=== PATIENT | male | born 1940 | race Caucasian/White ===

== ENCOUNTER 2016-04-14 20:23 | Inpatient (IN) | payer MEDICARE, BC ==
--- NOTE | ~2016-04-14 | CN ---
Consultation Report [facility] [address] [place]. [address] NAME: MINGO PEREZ : 42 STATUS : ADM IN PAT#: [id number] AGE: 75 ADM/REG DATE : 04/14/16 MR#: [id number] REPORT SERV DATE: 05/05/16 DICTATED BY: LUIZA TOLEDO DATE: 05/05/16 REPORT STATUS : Draft TRANSCRIBED BY: MODSerge DATE: 05/05/16 NEUROLOGY CONSULTATION DATE OF CONSULTATION: 05/05/2016 REASON FOR CONSULTATION: Ataxia and dizziness. PCP: None. HOSPITALIST: Judah Logan MD HISTORY OF PRESENT ILLNESS: The patient is a 75-year-old male, who was admitted on the of this month with severe nausea, vomiting, vertigo, imbalance, right ear pain, and headache. The patient himself was a poor historian. He states he does not remember much of what happened prior to admission. He has been here in the hospital so long that he has forgotten. However, his girlfriend was in the room with the patient and she was able to recall some of the events prior to admission. She stated that the patient's symptoms came on rather suddenly. He did complain of right ear pain and had a headache the 1st day or two of his symptoms. She states that he complained of his legs feeling heavy and when he stood up, he tended to fall towards the left side. In fact, he always fell towards the left. Any time he would change positions, he would get nauseated and would vomit. The patient was admitted to the hospital on the of this month and since that time, he has had persistent nausea and vomiting. Still to this day, any time he moves around the bed or he stands up, he will get nauseated and vomit. He has been unable to keep much food down or even his medications because of the nausea and vomiting. When the patient was questioned specifically about his hearing, he states that he has lost his hearing particularly on the right because he has "hole in his ear." He denies any ringing or buzzing in his ears. He does state that he has a "popping sound" when he opens his mouth or puts pressure in his ears. When his symptoms first started, he denied any visual changes, weakness, or numbness on one side of his body. He denied any changes in speech or disorientation. PAST MEDICAL HISTORY: Diastolic heart failure, stroke x3, GI bleed, small bowel AVM x3, anxiety, hypertension, aortic stenosis, chronic kidney disease stage 3, coronary artery disease, peripheral artery disease, renal cell carcinoma, hiatal hernia, Jamil's esophagitis, diverticulosis, subclavian stenosis, adrenal adenoma, hyperlipidemia, B12 deficiency, cigarette abuse, and alcohol abuse. PAST SURGICAL HISTORY: Cardiac stents, AVR, peripheral stents, partial nephrectomy, carotid stent, bowel resection x2, appendectomy, cholecystectomy, thoracic aneurysm repair, and left subclavian stent placement. CURRENT MEDICATION LIST: Includes Augmentin 875 mg b.i.d., aspirin 81 mg daily, Plavix 75 mg Consultation Report [address] [place]. [address] NAME: MINGO PEREZ : 42 STATUS : ADM IN [facility]#: [id number] AGE: 75 ADM/REG DATE : 04/14/16 MR#: [id number] REPORT SERV DATE: 05/05/16 DICTATED BY: LUIZA TOLEDO DATE: 05/05/16 REPORT STATUS : Draft TRANSCRIBED BY: MARAL DATE: 05/05/16 daily, Pepcid 20 mg IV daily, Flonase nasal spray, heparin 5000 units subcu every 8 hours, Claritin 10 mg daily, Singulair 10 mg at bedtime, Habitrol nicotine patch 21 mg daily, Protonix 40 mg b.i.d., MiraLAX one packet daily, and Carafate 1 g before meals and at bedtime. ALLERGIES: SULFA. SOCIAL HISTORY: The patient is a who lives with his girlfriend. He has two children. 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 He is a smoker who quit prior to admission. He drinks beer and does not use illicit drugs. FAMILY HISTORY: Not obtained from the patient. REVIEW OF SYSTEMS: For pertinent positives, please refer to HPI. PHYSICAL EXAMINATION: VITAL SIGNS: The patient is a 75-year-old male, who stands 5 foot 11 inches and weighs 147 pounds. He is afebrile. Heart rate 75, respiratory rate 20, O2 saturations on room air 95%, and blood pressure 215/84. NEURO: The patient is hard of hearing but he is oriented x4, pleasant, communicates appropriately. Speech is clear. Language fluent. Pupils are 3 mm on the left, 4 mm on the right (chronic). EOMs intact, slight nystagmus with vertical gaze. Does have asterixis. No pronator drift, dysmetria, tremor. Slight ataxia with [id number] bilaterally. Upper extremity strength is 4+ bilaterally. Upper DTRs 1+ bilaterally. No reported sensory deficits. Lower extremity strength is 4/5 bilaterally. Patellar reflexes 2+ bilaterally. Unable to assess plantar. The patient is very sensitive in his feet. No reported sensory deficits. The patient is unable to get up at this point. He is very sick at his stomach when he changes positions. NECK: Carotid bruits. No JVD or thyromegaly. CHEST: Lung sounds reveal scattered rhonchi. CARDIAC: Regular rate and rhythm with a grade 2/6 systolic murmur. LAB WORK: CBC shows an H and H of 6.6 and 20.9. BMP: BUN 33, creatinine 2.33. MRI of the brain back in 04/15/2016, no acute changes. ASSESSMENT/PLAN: Persistent vertigo with associated nausea and vomiting, etiology unknown. Differentials could include a central vertigo (stroke) versus vestibular neuronitis versus Meniere disease (however the patient does not report tinnitus). At this point, the patient will undergo an MRI of the brain without gadolinium. I will place him on thiamine 100 mg IV daily and lastly if the MRI comes back negative, we will consider placing the patient on steroids to help alleviate his symptoms. Thank you again for including us in consultation. We will continue to follow with you. Consultation Report [address] [place]. [address] NAME: MINGO PEREZ : 41 STATUS : ADM IN PAT#: [id number] AGE: 75 ADM/REG DATE : 04/14/16 MR#: [id number] REPORT SERV DATE: 05/05/16 DICTATED BY: LUIZA TOLEDO DATE: 05/05/16 REPORT STATUS : Draft TRANSCRIBED BY: MARAL DATE: 05/05/16 IVY/MARAL Luiza Toledo [facility]- / [id number] CC: Judah Logan MD
--- NOTE | ~2016-04-14 | OP ---
Record Of Operation [facility] [address] [place]. [address] NAME: MINGO PEREZ : 42 STATUS : ADM IN PAT#: [id number] AGE: 75 ADM/REG DATE : 04/14/16 MR#: [id number] REPORT SERV DATE: 04/19/16 DICTATED BY: JONAH NIEVES DATE: 04/19/16 REPORT STATUS : Draft TRANSCRIBED BY: MODL DATE: 04/19/16 DATE OF PROCEDURE: 04/17/2016 PREPROCEDURE DIAGNOSIS: Mesenteric vascular ischemia. PROCEDURE PERFORMED: 1. Selective catheterization of the superior mesenteric artery with angioplasty stent reconstruction 6 x 22 iCAST. 2. Selective catheterization of the celiac artery with direct arteriography with a 4 x 12 mm bare-metal angioplasty and stent. SURGEON: Jonah Nieves M.D. ANESTHESIA: Local MAC. COMPLICATIONS: None. INDICATION FOR PROCEDURE: Secondary to this very pleasant 75-year-old gentleman presenting with evidence of mesenteric vascular disease, status post remotely stent reconstruction of the SMA presenting with new nausea and vomiting and severe abdominal pain. Recommendations were made for repeat angiography to help further define his mesenteric vascular system and repair if appropriate. Risks and benefits were discussed. Consent was obtained. DETAILS OF PROCEDURE: The patient was brought to the endovascular operating room, placed in supine position, prepped and draped in routine sterile fashion with attention to the bilateral groin region. The left femoral artery was interrogated with ultrasound and found to be compressible. Needle was passed into this artery under ultrasound vision. Pictures were then taken and placed in chart. Next, wires were passed into the aorta followed by a 6 x 45 sheath. A lateral aortogram was then performed and this defined the SMA and celiac artery. The SMA was then cannulated. 3000 units of heparin was given and allowed to circulate and there was a stent noted with a central obstruction and a distal kink at the end of the stent. A wire was then passed across this. Angioplasty was performed with a 5 x 4 balloon and the sheath was then advanced into the stent. Secondary to technical issues with the stent, extension of the stent was indicated. A 6 x 22 iCAST stent was passed, positioned, and deployed just past the obstruction. This was dilated and showed adequate flow into the SMA. At this point, the celiac artery was then cannulated. This showed evidence of a severe obstruction of approximately 80%. Angioplasty was then performed with a 4 x 2 balloon without significant improvement. The stent was placed. A 4 x 12 balloon- mounted stent was then passed, positioned and deployed into the proximal celiac artery to reconstruct this segment. This adequately maintained flow to the gastric artery and the splenic and celiac. Wires, catheters, sheaths were then removed. The left groin was then closed with a StarClose. The patient tolerated the procedure well. CL/MODL Record Of [address] [address] NAME: MINGO PEREZ : 41 STATUS : ADM IN PAT#: [id number] AGE: 75 ADM/REG DATE : 04/14/16 MR#: [id number] REPORT SERV DATE: 04/19/16 DICTATED BY: JONAH NIEVES DATE: 04/19/16 REPORT STATUS : Draft TRANSCRIBED BY: MARAL DATE: 04/19/16 Jonah Nieves M.D. / [id number] CC: Lexx Armendariz MD
--- NOTE | ~2016-04-14 | EGD ---
EGD REPORT [facility] [address] [address] NAME: MINGO BENTLEY : 42 STATUS : ADM IN PAT#: [id number] AGE: 75 ADM/REG DATE : 04/14/16 MR#: [id number] REPORT SERV DATE: 04/21/16 DICTATED BY: HEMANT LUJAN DATE: 04/21/16 REPORT STATUS : Draft TRANSCRIBED BY: [facility] DATE: 04/21/16 Endoscopy Center Patient Name: Mingo Bentley Date of : 1940 Attending MD: HEMANT LUJAN MD Procedure Date No Time: 04/21/2016 Procedure: Upper GI endoscopy Indications: Nausea with vomiting Referring MD: BLAKE CONSTANTINO MD Medicines: Monitored Anesthesia Care Complications: No immediate complications. Estimated blood loss: Minimal. Procedure: Pre-Anesthesia Assessment: - ASA Grade Assessment: III - A patient with severe systemic disease. After obtaining informed consent, the endoscope was passed under direct vision. Throughout the procedure, the patient's blood pressure, pulse, and oxygen saturations were monitored continuously. The GIF [id number] was introduced through the mouth, and advanced to the third part of duodenum. The upper GI endoscopy was accomplished without difficulty. The patient tolerated the procedure well. Findings: A few small erosions were found in the lower third of the esophagus that were oozing blood, likely from wretching. A medium-sized hiatus hernia was present with non-bleeding santana's erosions. Patchy moderate inflammation characterized by congestion (edema) and shallow ulcerations was found in the duodenal bulb, in the second part of the duodenum and in the third part of the duodenum. Biopsies were taken with a cold forceps for histology. Estimated blood loss was minimal. The exam was otherwise without abnormality. Impression: - A few erosions in the lower third of the esophagus. - Hiatus hernia. - Duodenitis. Biopsied. - The examination was otherwise normal with no suggestion of obstruction. Recommendation: - Return patient to hospital [facility] for ongoing care. - Clear liquid diet. - Use Protonix (pantoprazole) 80 mg IV BID. EGD REPORT [address] [address] NAME: MINGO BENTLEY : 41 STATUS : ADM IN [facility]#: [id number] AGE: 75 ADM/REG DATE : 04/14/16 MR#: [id number] REPORT SERV DATE: 04/21/16 DICTATED BY: HEMANT LUJAN DATE: 04/21/16 REPORT STATUS : Draft TRANSCRIBED BY: AgSquared DATE: 04/21/16 - Await pathology results. Procedure Code(s): --- Professional --- 42505, Esophagogastroduodenoscopy, flexible, transoral; with biopsy, single or multiple Diagnosis Code(s): --- Professional --- K22.10, Ulcer of esophagus without bleeding K44.9, Diaphragmatic hernia without obstruction or gangrene K29.80, Duodenitis without bleeding R11.2, Nausea with vomiting, unspecified CPT copyright 2013 [employer]. All rights reserved. 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 Hemant Lujan MD HEMANT LUJAN MD 04/21/2016 9:48 AM This report has been signed electronically. Number of Addenda: 0 Note Initiated On: 04/21/2016 9:09 AM Scope Withdrawal Time 0 hours 0 minutes 0 seconds [address] [place] [address]
--- NOTE | ~2016-04-14 | IDS ---
Interim Discharge Summary [facility] [address] [place]. [address] NAME: MINGO PEREZ : 42 STATUS : ADM IN PAT#: [id number] AGE: 75 ADM/REG DATE : 04/14/16 MR#: [id number] REPORT SERV DATE: 04/28/16 DICTATED BY: MADDIE CORONADO DATE: 04/28/16 REPORT STATUS : Draft TRANSCRIBED BY: MODL DATE: 04/28/16 ADMISSION DATE: 04/14/2016 DISCHARGE DATE: PROBLEM LIST: 1. Persistent nausea, vomiting, and vertigo and dizziness, is more likely coming from the inner ear issue and yesterday, he was started on and nasal spray and amoxicillin, improved and now he is able to tolerate. Working on the PT and then rehab placement, MRI was negative for brain issue. 2. Chronic kidney disease, stable. 3. Peripheral vascular disease, status post mesenteric stent and celiac angioplasty stable, had a re-angiogram which showed widely patent stent. There is no obstruction. 4. Duodenitis and Jermaine's ulcer on the upper endoscopy. 5. History of AVR. 6. Anemia of the chronic disease. CONSULTANTS: 1. Dr. Nieves. 2. Dr. Harper and associate. PROCEDURES: 1. Aortogram with mesenteric artery stent and celiac angioplasty. 2. The patient was admitted to hospital with nausea, vomiting, and dizziness. 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 He had angioplasty and stent done. Even after the stent, he was having persistent nausea and vomiting, not able to eat. Had a GI workup after that, had extensive GI workup and EGD was showing duodenal ulcer and Jermaine ulcer. He was treated with extensive medicines. In spite of all this effort, he still had persistent nausea. Head MRI done at the very first day of hospitalization did not show any brain lesion. Yesterday he is complained of ear pain and also it is related with his inner ear issue. Therefore, I put him on scheduled and empiric Augmentin and also steroid nasal spray. After that, he is doing better. He is not having any more nausea and hiccups and he is able to tolerate breakfast this morning. We are going to continue this treatment. 3. Because of this weakness and nausea and dizziness, patient has been refusing the PT. So we have to have a PT evaluation again and he is looking and feeling much better today and we will continue this treatment for two weeks for the inner ear issue and patient will be eventually discharged to [facility] tomorrow. EKL/MODL Maddie Coronado M.D. / [id number] Interim Discharge Summary [address] [address] NAME: MINGO PEREZ : 42 STATUS : ADM IN PAT#: [id number] AGE: 75 ADM/REG DATE : 04/14/16 MR#: [id number] REPORT SERV DATE: 04/28/16 DICTATED BY: MADDIE CORONADO DATE: 04/28/16 REPORT STATUS : Draft TRANSCRIBED BY: MARAL DATE: 04/28/16 CC: Maddie Coronado M.D.
--- NOTE | ~2016-04-14 | OP ---
Record Of Operation [facility] [address] [place]. [address] NAME: MINGO PEREZ : 42 STATUS : ADM IN PAT#: [id number] AGE: 75 ADM/REG DATE : 04/14/16 MR#: [id number] REPORT SERV DATE: 05/03/16 DICTATED BY: JONAH NIEVES DATE: 05/02/16 REPORT STATUS : Draft TRANSCRIBED BY: MODL DATE: 05/02/16 DATE OF PROCEDURE: 04/26/2016 PREPROCEDURE DIAGNOSES: Nausea, vomiting, and possible mesenteric ischemia. POSTOPERATIVE DIAGNOSES: Widely patent celiac and SMA arterial stents. No evidence of gastric artery obstruction, no evidence of celiac artery obstruction. PROCEDURE PERFORMED: Abdominal aortogram with celiac artery and superior mesenteric artery catheterization with angiography. ATTENDING: Joanh Nieves M.D. ANESTHESIA: Local MAC. COMPLICATIONS: None. INDICATION FOR PROCEDURE: Secondary to this very pleasant 75-year-old gentleman presenting with continued and protracted nausea, vomiting, and dizziness associated with recent mesenteric vascular reconstruction. Extensive workup has been completed showing some residual elevated velocities post mesenteric vascular intervention. Recommendations were made for repeat mesenteric imaging to help further define his mesenteric vascular system and verify the patency of these vessels. Risks and benefits were discussed. Consent was obtained. DETAILS OF PROCEDURE: The patient was brought to the endovascular operating room, placed in supine position, prepped and draped in routine sterile fashion with attention to the bilateral groins. The right femoral artery was interrogated with ultrasound and found to be compressible. Needle was then passed into this artery under direct ultrasound vision. A picture was then taken and placed on the chart. Next, a wire was then passed into the aorta followed by a 6-Divehi sheath and Tyner flush catheter was advanced to the level of L3. A 6 x 45 sheath was then advanced to this level and then a JR4 catheter was then advanced in the superior mesenteric artery. Imaging showed this to be widely patent without evidence of obstruction and the catheter could easily pass into the superior mesenteric artery. Next, the celiac artery was then catheterized and this showed wide patency of the superior mesenteric artery. No evidence of obstruction seen. AP imaging of the celiac artery was then performed showing widely patent celiac artery access, hepatic artery, splenic artery, and gastric artery with excellent brisk flow to the end organs. No evidence of mesenteric vascular obstruction. Wires, catheters, and sheaths were then removed. The right groin was then closed with Angio-Seal. The patient tolerated the procedure well. CL/MODL Jonah Record Of Operation [address] [place] [address] NAME: MINGO PEREZ : 42 STATUS : ADM IN [facility]#: [id number] AGE: 75 ADM/REG DATE : 04/14/16 MR#: [id number] REPORT SERV DATE: 05/03/16 DICTATED BY: JONAH NIEVES DATE: 05/02/16 REPORT STATUS : Draft TRANSCRIBED BY: MARAL DATE: 05/02/16 Aki Nieves / [id number] CC: Judah Logan MD
--- NOTE | ~2016-04-14 | HP ---
History And Physical [address] [place]. [address] NAME: MINGO PEREZ : 42 STATUS : ADM IN [facility]#: [id number] AGE: 75 ADM/REG DATE : 04/14/16 MR#: [id number] REPORT SERV DATE: 04/15/16 DICTATED BY: JARETH WELCH DATE: 04/15/16 REPORT STATUS : Draft TRANSCRIBED BY: MODL DATE: 04/15/16 DATE OF ADMISSION: 04/14/2016 CHIEF COMPLAINT: A 75-year-old male presenting with severe nausea, vomiting, vertigo, and now acute renal failure. HISTORY OF PRESENT ILLNESS: The patient's history was obtained through careful interview with the patient and girlfriend coupled with [facility] and [facility] medical records. The patient says at about 5 days ago he began to develop vertigo with right ear pain that has progressed particularly over the last three days, it is a fullness discomfort in his right ear and 9/10 severity that is being increased over that period of time. He describes nausea and vomiting, vertigo worsened by any kind of movement. He has lightheadedness and orthostatics symptoms, a feeling as if he might pass out at any time. He describes himself as "stumbling about" with near falls. He states that he really has not eaten any solid food in about four or five days. He describes abdominal discomfort also in the periumbilical region, a pulling and yanking discomfort, but also like "there is a fist punching my belly," 9/10 severity at times. No diarrhea. No fevers or chills. No hemiparesis. No double vision. No dysarthria. REVIEW OF SYSTEMS: Otherwise, complete review of systems was obtained and was negative. PAST MEDICAL HISTORY: 1. "Severe" diastolic dysfunction of the heart. 2. Stroke x3. 3. GI bleed with small bowel arteriovenous malformations, seen by Dr. Kaylee Francis. 4. Anxiety. 5. Hypertension. 6. Critical aortic stenosis leading to aortic valve replacement in 2013, followed by Dr. Blum. 7. Chronic kidney disease, stage III. Baseline creatinine of 1.2-1.9. 8. Coronary artery disease, status post stent placement. 9. Peripheral arterial disease, status post stent placement. 10.Renal cell carcinoma, status post partial nephrectomy. 11.Hiatal hernia with Jamil's. 12.Carotid stent placement. 13.Diverticulosis. 14.Subclavian stenosis. 15.Adrenal adenoma. 16.Elevated cholesterol. History And Physical [address] [address] NAME: MINGO PEREZ : 42 STATUS : ADM IN PAT#: [id number] AGE: 75 ADM/REG DATE : 04/14/16 MR#: [id number] REPORT SERV DATE: 04/15/16 DICTATED BY: JARETH WELCH DATE: 04/15/16 REPORT STATUS : Draft TRANSCRIBED BY: MARAL DATE: 04/15/16 17.B12 deficiency. 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 19.Perforated eardrum. PAST SURGICAL HISTORY: 1. Partial nephrectomy for renal cell carcinoma. 2. Bilateral carotid endarterectomy. 3. Bowel resection x2. 4. Appendectomy. 5. Cholecystectomy. 6. Aortic valve replacement in 2013. 7. Thoracic aortic aneurysm dissection repair in 2013. ALLERGIES: SULFA. SOCIAL HISTORY: Quit smoking about two weeks ago. Quit alcohol. Used to drink heavy amounts of beer. He lives with his girlfriend. He is a . 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 FAMILY HISTORY: Heart disease. Father with cancer. CURRENT MEDICATIONS: Include Xanax 0.5 mg p.o. t.i.d. p.r.n., aspirin 81 mg p.o. daily, clonidine 0.1 mg p.o. q.8 hours, Plavix 75 mg p.o. daily, Nexium 40 mg p.o. daily, hydrocodone p.r.n., Lisinopril/hydrochlorothiazide 20/12.5 p.o. b.i.d., meclizine p.r.n., and Phenergan p.r.n. PHYSICAL EXAMINATION: VITAL SIGNS: Temperature 98.7, pulse 95, blood pressure 137/60, respiratory rate 16, and O2 saturation 100% on room air. GENERAL: A pleasant, cooperative male. No evidence of acute distress at this time. HEENT: Pupils equal, round, and reactive to light. No conjunctival pallor. No scleral icterus. Nares are patent. Oropharynx is clear of obstruction. Dry mucous membranes. The patient has a perforated right eardrum but no purulent drainage or swelling or erythema of the ear exam. NECK: Trachea midline. No thyromegaly. LYMPH: No cervical lymphadenopathy. No supraclavicular lymphadenopathy. RESPIRATORY: Clear to auscultation at bases. No wheezes, rales, or rhonchi. Normal respiratory effort. CARDIOVASCULAR: Regular rate and rhythm. No murmurs, rubs, or gallops. No extremity edema is appreciated. ABDOMEN: Soft, nontender, and nondistended. Despite his description of periumbilical abdominal pain, it is really not reproduced by exam. He has active bowel tones. No hepatosplenomegaly. DERMATOLOGICAL: Warm and dry extremities. No pallor. No cyanosis. PSYCHIATRIC: Normal affect. Good mood. Alert and oriented x3. History And Physical [address] [address] NAME: MINGO PEREZ : 42 STATUS : ADM IN [facility]#: [id number] AGE: 75 ADM/REG DATE : 04/14/16 MR#: [id number] REPORT SERV DATE: 04/15/16 DICTATED BY: JARETH WELCH DATE: 04/15/16 REPORT STATUS : Draft TRANSCRIBED BY: MARAL DATE: 04/15/16 LABORATORY DATA: White blood count 10.4, hemoglobin 11, hematocrit 34, and platelets 304. Sodium 145, potassium 3.8, chloride 108, bicarb 23, BUN 54, creatinine 4.30, glucose 94. Lipase 332. INR 1.1. Alkaline phosphatase 190. STUDIES: CT scan of the abdomen shows no acute intraabdominal process. ASSESSMENT AND PLAN: 1. Acute renal failure. Dehydrated by exam. No obstruction by CT scan. Place on IV fluids. Hold hydrochlorothiazide. 2. Abdominal pain. Negative CT scan of the abdomen. We will check lactic acid. I would like to check a mesenteric arterial Doppler ultrasound with history of mesenteric stenosis. 3. Vertigo with a significant history of stroke x3. Will check an MRI of the brain but also has a chronic right perforated ear drum with increasing right ear pain. Use p.r.n. meclizine and antinausea medications. 4. Aortic valve replacement. Check echocardiogram. 5. History of cerebrovascular accident x3. KPL/MODL Jareth Welch M.D. / [id number] CC: MD Lopez Garcia M.D. Colleen Schmitt, M.D.
--- NOTE | ~2016-04-14 | OP ---
Record Of Operation [facility] [address] [place]. [address] NAME: MINGO PEREZ : 42 STATUS : ADM IN PAT#: [id number] AGE: 75 ADM/REG DATE : 04/14/16 MR#: [id number] REPORT SERV DATE: 05/04/16 DICTATED BY: JONAH NIEVES DATE: 05/03/16 REPORT STATUS : Draft TRANSCRIBED BY: MODSerge DATE: 05/03/16 DATE OF PROCEDURE: 05/02/2016 PREOPERATIVE DIAGNOSIS: Severe dizziness with nausea and vomiting, possible subclavian steal syndrome or critical carotid stenosis. POSTOPERATIVE DIAGNOSES: 1. High grade left subclavian artery proximal stenosis 80% to 90%. 2. A 20% to 30% stenosis of the left internal carotid artery stent. 3. Chronic occlusion of the right internal carotid artery. PROCEDURE PERFORMED: 1. Arch aortogram with left common carotid artery catheterization and angiography. 2. Left subclavian artery catheterization and angiography. 3. Left subclavian angioplasty stent reconstruction, proximal, 10 x 27 stent. SURGEON: Jonah Nieves M.D. ANESTHESIA: Local MAC. COMPLICATIONS: None. INDICATION FOR PROCEDURE: Secondary to this very pleasant 75-year-old gentleman being evaluated in the hospital for protracted nausea and vomiting. This appears to be associated with standing, orthostatic hypotension and profound dizziness. This suggests either subclavian steal syndrome or possible left carotid artery stenosis with known history of major supra-aortic arch occlusive disease. Recommendations were made for diagnostic arch arteriogram, carotid angiogram, subclavian angiogram, possible stent. DETAILS OF PROCEDURE: The patient was brought to the endovascular operating room, placed in a supine position, prepped and draped in a routine sterile fashion with attention to the bilateral groin region. The left femoral artery was interrogated with ultrasound and found to be compressible. Needle was then passed into this artery under direct ultrasound vision. Picture was then taken and placed on the chart. Next, wire was passed into the aorta followed by a 6-Georgian sheath. Mohall flush catheter was advanced to level of the arch. A 40 degree FELIPE arch arteriogram was then performed defining patent innominate left common carotid artery origin and left subclavian. The left subclavian was then cannulated first followed by a wire advanced all the way into the distal axillary artery and then a 7 sheath was then advanced to the proximal subclavian artery. Arteriogram demonstrated a high-grade proximal obstruction of the ostium of the subclavian artery. This was approximately 80% to 90%. Next, a 10 x 27 stent was passed through this lesion with moderate difficulty. The stent was then deployed open to maximum 10 mm sequentially. Completion imaging showed wide patency of this vessel with antegrade flow into the subclavian and vertebral arteries. Next, the left common carotid artery was then catheterized and the catheter was then advanced into the common carotid artery. An arteriogram was then performed demonstrating this to be widely patent as well as the left internal carotid artery stent. There was some Record Of Operation [address] [place]. [address] NAME: MINGO EPREZ : 42 STATUS : ADM IN [facility]#: [id number] AGE: 75 ADM/REG DATE : 04/14/16 MR#: [id number] REPORT SERV DATE: 05/04/16 DICTATED BY: JONAH NIEVES DATE: 05/03/16 REPORT STATUS : Draft TRANSCRIBED BY: MARAL DATE: 05/03/16 intimal hyperplasia associated with this, but there was only approximately 30% narrowing at most. At this point, wires, catheters, and sheaths were then removed. The left groin was then closed with a StarClose. The patient tolerated the procedure well. CL/MARAL Jonah Nieves M.D. / [id number] CC: Judah Logan MD
--- NOTE | ~2016-04-14 | IDS ---
Interim Discharge Summary [facility] [address] [place]. [address] NAME: MINGO PEREZ : 42 STATUS : ADM IN PAT#: [id number] AGE: 75 ADM/REG DATE : 04/14/16 MR#: [id number] REPORT SERV DATE: 05/06/16 DICTATED BY: JUDAH LE DATE: 05/05/16 REPORT STATUS : Draft TRANSCRIBED BY: MODSrege DATE: 05/05/16 ADMISSION DATE: 04/14/2016 DISCHARGE DATE: DATE OF DISCHARGE: Pending. CONSULTATIONS: 1. Vascular Surgery, Dr. Jonah Nieves. 2. Neurology, Dr. Luiza Avendano. 3. Gastroenterology, Dr. Hemant Harper. PROCEDURES PERFORMED: On 05/05/2016: 1. Arch aortogram with left common carotid artery catheterization and angiography. 2. Left subclavian artery catheterization and angiography. 3. Left subclavian angioplasty stent reconstruction proximal 10 x [address] Nieves. CURRENT ADMISSION DIAGNOSES: 1. Persistent nausea, vomiting, vertigo, and dizziness. 2. Chronic kidney disease. 3. Normocytic anemia. 4. Duodenitis. 5. Jermaine ulcer. 6. History of aortic valve repair. 7. Acute sinusitis. 8. Subclavian stenosis. 9. Bilateral carotid stenosis. HOSPITAL COURSE: From 04/15/2016 to 04/28/2016, interim discharge summary was dictated by Dr. Coronado. I took over the care of this patient starting from 05/02/2016 to 05/05/2016. In summary, the patient presented to the hospital with persistent nausea, vomiting, vertigo, and dizziness with severe abdominal pain. Underwent a CT scan of the abdomen that showed possible concern for SMA stenosis. The patient had a mesenteric Doppler that confirmed the presence of SMA stenosis. Vascular Surgery was consulted. A stent was successfully placed in the SMA and the artery. The patient's abdominal pain completely resolved. However, the patient continued to have persistent worsening vertigo, nausea, and vomiting. Nausea and vomiting usually occur when the patient stands up or when trying to walk. The patient was noted to continue to have ataxia. He will lean to the left and start vomiting. Initial thought was likely peripheral vertigo was etiology. The patient was placed on meclizine and diazepam with no significant improvement. A CT scan and MRI of the brain were done that ruled out acute CVA on initial presentation. On 04/15/2016 also, a CT scan of the as well as internal ossicles was done that ruled out the presence of acoustic neuroma without any evidence of cerebellar infarct. A carotid Doppler ultrasound was performed that confirmed the presence of grade 4 stenosis on the right, possible in-stent stenosis on the left with subclavian artery stenosis. The patient was taken back to OR with subsequent stents placed in the right carotid, left carotid, and Interim Discharge Summary [address] [place]. [address] NAME: MINGO PEREZ : 42 STATUS : ADM IN PAT#: [id number] AGE: 75 ADM/REG DATE : 04/14/16 MR#: [id number] REPORT SERV DATE: 05/06/16 DICTATED BY: JUDAH LE DATE: 05/05/16 REPORT STATUS : Draft TRANSCRIBED BY: MARAL DATE: 05/05/16 subclavian without any further complication. However, the patient still continues to have persistent nausea and vomiting despite stenosis. Neurology was consulted. Neurology recommended to repeat MRI of the brain to rule out any acute infarct, which may have occurred during this hospitalization. Presently, the patient is awaiting a repeat MRI. Neurology's thinking is if MRI is negative for an acute stroke, they will commence a trial of steroid for possible vestibular neuritis. Normocytic anemia. Given the patient's initial presentation was concerning for abdominal pain and Hemoccult-positive stool, the patient underwent an EGD that shows no acute source of bleeding, but confirmed the presence of duodenitis. Biopsy was taken. Biopsy report shows within normal limits. Also, negative for H pylori. The patient's hemoglobin continued to trend down during the course of this admission, likely related to anemia of chronic disease. No evidence of acute blood loss. The patient will receive 1 unit transfusion today and posttransfusion H and H will be monitored. Acute kidney injury on chronic kidney disease. The patient's creatinine baseline remained stable in the range of 2.1 to 2.5. The patient's code status is full code. The patient will likely be discharged to subacute rehab at [facility] for acute rehabilitation if symptoms improve. IOO/MODL Judah Le MD / [id number] CC: Judah Le MD
--- NOTE | ~2016-04-14 | CN ---
Consultation Report [facility] [address] [place]. [address] NAME: MINGO BENTLEY : 42 STATUS : ADM IN [facility]#: [id number] AGE: 75 ADM/REG DATE : 04/14/16 MR#: [id number] REPORT SERV DATE: 04/21/16 DICTATED BY: LIBBY PELAEZ DATE: 04/21/16 REPORT STATUS : Draft TRANSCRIBED BY: MODL DATE: 04/21/16 GI CONSULTATION DATE OF CONSULTATION: 04/21/2016 REASON FOR CONSULTATION: Evaluation and management of nausea, vomiting, and questionable gastric outlet obstruction. HISTORY OF PRESENT ILLNESS: Mr. Bentley is a 75-year-old male patient who is followed by Dr. Kaylee Francis as well as nurse practitioner, Marielena Quezada, in the outpatient setting. He had recently been in touch with the office secondary to complaints of nausea, vomiting, as well as complaints of some dark stool. He was directed to come to the emergency room for further evaluation. He had been also having some vertigo-type symptoms with presyncopal sensations. He states he has not been able to eat any solid food really for around 2 weeks. He cannot keep anything on his stomach, and when he does try, he states that the liquids come back up. He did have some abdominal pain on admission, however, presently he denies any to me. He has recently undergone, on 04/19/2016, celiac and mesenteric artery stenting secondary to mesenteric vascular ischemia. The procedure went well, no complications in the interim, but still complains of nausea, vomiting, and inability to keep anything on his stomach. Thus, a GI consult was obtained. He has had a CT scan on admission, then he had another one on the which showed no evidence of high- grade GI or obstruction. Last labs showed a hemoglobin of 8.1, hematocrit of 25.6, and white count of 5.3. I have discussed with the patient as well as his girlfriend who is present at the bedside we will plan for EGD today to rule out gastric outlet obstruction. The risks, benefits, alternatives, and complications were detailed for them to include, but not limited to, risk of bleeding, perforation, infection, reaction to medications, as well as cardiac and pulmonary side effects. He is agreeable to proceed. His last EGD and colonoscopy were done in 03/2013. 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 He then had a colonoscopy the next day showing normal ileum, descending colon polyp, and diverticulosis of the sigmoid colon. PAST MEDICAL HISTORY: Diverticulosis with GI bleed secondary to AVMs; diastolic dysfunction; CVA x3; anxiety; hypertension; critical aortic stenosis, status post aortic valve replacement; CKD 3; coronary artery disease, status post stent, on Plavix; peripheral artery disease, status post stent; renal cell carcinoma, status post partial nephrectomy; hiatal hernia with Jamil's; carotid stent placement; diverticulosis; subclavian stenosis; adrenal adenoma; elevated cholesterol; B12 deficiency; mesenteric artery stenosis; and perforated eardrum. PAST SURGICAL HISTORY: Recent superior and celiac artery stenting, partial nephrectomy secondary to renal cell carcinoma, bilateral carotid endarterectomy, bowel resection x2, appendectomy, cholecystectomy, aortic valve replacement, and thoracic aortic aneurysm repair. Consultation Report [address] [place]. [address] NAME: MINGO BENTLEY : 42 STATUS : ADM IN [facility]#: [id number] AGE: 75 ADM/REG DATE : 04/14/16 MR#: [id number] REPORT SERV DATE: 04/21/16 DICTATED BY: LIBBY PELAEZ DATE: 04/21/16 REPORT STATUS : Draft TRANSCRIBED BY: MARAL DATE: 04/21/16 SOCIAL HISTORY: Past tobacco, cessation 3 weeks ago. Negative for alcohol, past history of heavy alcohol. Lives with a girlfriend. FAMILY HISTORY: Negative from a GI standpoint. ALLERGIES: TO SULFA. MEDICATIONS: His home medications are Xanax, aspirin, Catapres, Plavix, Nexium, Dolliver, Zestoretic, Antivert, and Phenergan. REVIEW OF SYSTEMS: A 10-point review of systems has been obtained with pertinent positives being addressed in the history of present illness. PHYSICAL EXAMINATION: VITAL SIGNS: Temperature 98.1, pulse 62, respirations 18, and blood pressure 158/72. GENERAL: Physical exam reveals an alert chronically ill-appearing male resting in bed with no focal deficits noted. Cooperative, in no apparent distress, and awake, alert, and oriented x3. HEAD EARS, EYES, NOSE, AND THROAT: Anicteric. Pupils are equally, round, and reactive to light and accommodation. Normocephalic and atraumatic. NECK: No JVD. No palpable nodes. LUNGS: Coarse with rhonchi bilaterally in the upper lobes. Positive for a semi-productive cough. Oxygen on at 2 L, normal respiratory effort exhibited. CARDIOVASCULAR SYSTEM: Regular rate and rhythm. ABDOMEN: Soft, flat, and nontender. No rebound and no guarding elicited on exam. Organomegaly not appreciated. Hypoactive bowel sounds. EXTREMITIES: No edema. Normal distal pulses. SKIN: Warm, dry, and intact. PERTINENT LABORATORY DATA: Sodium 144, potassium 3.8, BUN 31, creatinine 3.11, white count 5.3, hemoglobin 8.1, hematocrit 25.6, platelet count 184, and INR 1.3. ASSESSMENT: 1. Nausea and vomiting. a. Differential Diagnosis: Peptic ulcer disease, gastritis, esophagitis, gastric outlet obstruction, and gastroparesis. 2. Hiccups. 3. Melena with a history of AVMs. 4. Anemia. 5. Status post SMA and celiac stents. 6. History of coronary artery disease, PCI with Plavix. Consultation Report [address] [place]. [address] NAME: MINGO BENTLEY : 42 STATUS : ADM IN [facility]#: [id number] AGE: 75 ADM/REG DATE : 04/14/16 MR#: [id number] REPORT SERV DATE: 04/21/16 DICTATED BY: LIBBY PELAEZ DATE: 04/21/16 REPORT STATUS : Draft TRANSCRIBED BY: MARAL DATE: 04/21/16 PLAN: 1. NPO. 2. PPI. 3. EGD today. 4. Carafate and H2 inhibitor. Other recommendations to follow endoscopy. SHANNAN/MARAL BENTLEY Palomares / [id number]
--- NOTE | ~2016-04-14 | DS ---
Discharge Summary [facility] [address] [place]. [address] NAME: MINGO BENTLEY : [birth year] STATUS : DIS IN PAT#: [id number] AGE: 75 ADM/REG DATE : 04/14/16 MR#: [id number] REPORT SERV DATE: 05/10/16 DICTATED BY: MIGNON MAYERS DATE: 05/09/16 REPORT STATUS : Draft TRANSCRIBED BY: MODL DATE: 05/09/16 ADMISSION DATE: 04/14/2016 DISCHARGE DATE: 05/09/2016 HISTORY OF PRESENT ILLNESS: Mr. Bentley is a 75-year-old male, who presented to the hospital with a complaint of persistent nausea, vomiting, vertigo, and dizziness with severe abdominal pain. For further details, please refer to H and P dictated by Dr. Gigi Isbell on 04/15/2016. HOSPITAL COURSE: Please refer to interim discharge summary dictated by Dr. Logan on 05/06/2016. I assumed care of the patient, 05/06/2016. At the time of my assumption of care, Neurology was already consulted. From Neurology standpoint, given the patient's persistent symptoms, there was a concern of an acute stroke, which might have occurred during this hospitalization. A brain MRI without contrast was performed on 05/05/2016, which noted an acute small left posterior medullary infarct suggesting a small vertebrobasilar ischemic event from the POST MANAGER. Given this significant finding, the patient was placed on increased aspirin dose, was started on high-intensity statin with atorvastatin. However, the patient's lightheadedness and dizziness persisted. Neurology then placed the patient on scopolamine. Status post scopolamine, his nausea and vomiting subsequently improved. The patient progressed to remain in hemodynamic stability. Given the patient was evaluated by Physical Therapy with recommendations to be discharged to a skilled rehab facility, the patient was medically clear for discharge; however, was pending facility placement. The insurance approval has been obtained and the patient now has availability in the skilled facility. Given resolution of his symptoms, given his hemodynamic stability, and given clearance by Neurology, the patient will be discharged to [facility]. Plan has been discussed with the patient, who voices understanding and is agreeable with this plan. DISCHARGE EXAM: GENERAL: The patient was lying in bed, in no acute distress. Appears stated age. HEENT: Normocephalic, atraumatic. Extraocular motors intact. Moist oral mucosa. Pupils equal, round, and reactive to light and accommodation. NECK: Trachea midline and symmetric. No JVD noted. No thyromegaly present. No lymphadenopathy noted. CHEST: Clean scar noted. Nontender to palpation. CARDIOVASCULAR: Regular rate and rhythm. S1, S2. No murmurs, rubs, or gallops. LUNGS: Clear to auscultation bilaterally. ABDOMEN: Soft, flat, nontender, nondistended. Positive bowel sounds. LOWER EXTREMITIES: No cyanosis. No clubbing. No edema. NEURO: Alert and oriented x3. No focal deficits appreciated. DISCHARGE MEDICATIONS: 1. Amlodipine 10 mg p.o. daily. 2. Aspirin 325 mg p.o. daily. 3. Atorvastatin 80 mg p.o. at bedtime. 4. Plavix 75 mg p.o. daily. Discharge Summary [address] [address] NAME: MINGO BENTLEY : 42 STATUS : DIS IN PAT#: [id number] AGE: 75 ADM/REG DATE : 04/14/16 MR#: [id number] REPORT SERV DATE: 05/10/16 DICTATED BY: MIGNON MAYERS DATE: 05/09/16 REPORT STATUS : Draft TRANSCRIBED BY: MARAL DATE: 05/09/16 5. Vitamin D 29807 units p.o. q.7 days for three more doses. 6. Hydrochlorothiazide 25 mg p.o. daily. 7. Loratadine 10 mg p.o. daily. 8. Singulair 10 mg p.o. at bedtime. 9. Nicotine patch 21 mg topical daily. 10.Nexium 40 mg p.o. daily. 11.MiraLAX powder one pack p.o. daily. 12.Sucralfate 1 g p.o. before meals and at bedtime. P.r.n. medications include aspirin, Mylanta, Xanax 0.5 mg p.o. q.8 hours p.r.n., docusate 100 mg p.o. twice a day p.r.n., [place] 10/325 mg one tab p.o. q.8 hours p.r.n., ondansetron 4 mg p.o. q.4 hours p.r.n., Xanax one patch topically every third day p.r.n., clonidine 0.1 mg p.o. p.r.n., hydralazine 10 mg IV q.4 hours p.r.n. for systolic blood pressure greater than 170, albuterol 3 mg inhalation q.4 hours. All other information in the interim discharge summary remains the same. DISPOSITION: The patient will be discharged to [facility]. ACTIVITY: As tolerated. DIET: Low-salt renal diet. Greater than 30 minutes was spent coordinating care, dictation of note, chart review, coordinating discharge, and discussion of the patient with staff and Case Management. JE/MODL Mignon Mayers MD / [id number] CC: Mignon Mayers MD
[2016-04-14 14:42] LABS: BASOPHILS 0.5 %; BASOPHILS ABSOLUTE 0.05 10/3/uL (0.0-0.16); EOSINOPHILS 1.8 %; EOSINOPHILS ABSOLUTE 0.19 10/3/uL (0.0-0.53); HEMATOCRIT 33.6 % (40.0-51.0); LYMPHOCYTES 19.1 %; LYMPHOCYTES ABSOLUTE 1.98 10/3/uL (0.67-4.30); MEAN CORPUS HGB CONC 32.7 g/dL (32.0-36.0); MEAN CORPUSCULAR HEMOGLOB 28.4 pg (26.0-34.0); MEAN PLATELET VOLUME 10.7 fL (9.2-13.0); MONOCYTES 6.4 %; MONOCYTES ABSOLUTE 0.66 10/3/uL (0.21-1.20); NEUTROPHILS 71.2 %; NEUTROPHILS ABSOLUTE 7.39 10/3/uL (2.02-8.40); RED CELL COUNT 3.88 10/6/uL (4.7-6.1); WHITE BLOOD CELLS 10.4 10/3/uL (4.5-10.5)
[2016-04-14 14:43] LABS: ER CBC TAT 0 Hrs 04 MinsNP; MANUAL DIFF NO %; MEAN CORPUSCULAR VOLUME 86.6 fL (80-100); PLATELET COUNT 304 10/3/uL (150-400); RBC DISTRIBUTION WIDTH 14.6 % (12.0-16.0)
[2016-04-14 14:50] LABS: INTERNATIONAL NORMAL RATI 1.1 UNITS (-); PARTIAL THROMBO TIME 27.8 SEC (22.5-37.2); PROTIME (NOT ORD) 13.8 SEC (12.0-14.5)
[2016-04-14 14:56] LABS: CALCIUM, SERUM 8.6 MG/DL (8.5-10.4); CHLORIDE, SERUM 108 MMOL/L (96-112); CO2 (CARBON DIOXIDE) 23 MMOL/L (24-34); GLUCOSE, SERUM 94 MG/DL (60-99); POTASSIUM, SERUM 3.8 MMOL/L (3.5-5.3); SGOT(AST) 11 U/L (5-40); SGPT(ALT) 13 U/L (5-65); SODIUM, SERUM 145 MMOL/L (135-148); TOTAL BILIRUBIN 0.2 MG/DL (0-1.2)
[2016-04-14 14:59] LABS: A/G RATIO 0.7 (0.7-1.9); ALBUMIN 3.3 G/DL (3.5-5.0); ALKALINE PHOSPHATASE 190 U/L (45-117); BUN (BLOOD UREA NITROGEN) 54 MG/DL (6-23); GFR AFRICAN AMERICAN 15 ML/MIN (>=60); GFR NON AFRICAN AMERICAN 13 ML/MIN (>=60); GLOBULIN 4.5 G/DL (2.5-4.1); TOTAL PROTEIN 7.8 G/DL (6.0-8.5)
[~2016-04-14 20:23] MED LIST: ASAB PO; AZOPT OPH; CAT1 PO; CATAPRES2 TOP; COMBIGAN0.2 MG/0.5 OP; DURACLON PO; FERROUS SULF325 M1 PO; HALF81 PO; LIPITOR80 MG PO; LONITEN10 PO; LOP25 PO; LORCET PO; LORTAB 5 PO; LORTAB10 PO; LUMIGAN2.5 ML OPH; NEXIUM40 PO; NICOTINE PATCH; NIFEDIAC CC90 MG PO; NORCO1 TA1 PO; NORCO1 TAB PO; PLAVIX PO; PRILOSEC40 MG PO; PRIN20 PO; VITC500 PO; XANAX1 MG PO; XANAX2 MG PO; ZESTORETIC1 TA1 PO; ZESTORETIC1 TAB PO; ZOCOR40 PO
[2016-04-14] MEDS ORDERED: CAT1 PO (20:57)
[2016-04-14] MEDS ORDERED: ZESTORETIC PO (20:57)
[2016-04-14] MEDS ORDERED: NEXIUM40 PO (20:58)
[2016-04-14] MEDS ORDERED: NORCO1 TAB PO (20:58)
[2016-04-14] MEDS ORDERED: ASAB PO (20:59)
[2016-04-14] MEDS ORDERED: PLAVIX PO (20:59)
[2016-04-14] MEDS ORDERED: X5 PO (21:00)
[2016-04-14] MEDS ORDERED: PR12.5 PO (21:02)
[2016-04-14] MEDS ORDERED: MCZ25 PO (21:02)
[2016-04-15 04:18] LABS: BASOPHILS 0.4 %; BASOPHILS ABSOLUTE 0.03 10/3/uL (0.0-0.16); EOSINOPHILS 1.8 %; EOSINOPHILS ABSOLUTE 0.14 10/3/uL (0.0-0.53); IMMATURE GRANULOCYTES 0.9 %; IMMATURE GRANULOCYTES ABSOLUTE 0.07 10/3/uL (0.0-0.11); LYMPHOCYTES ABSOLUTE 1.31 10/3/uL (0.67-4.30); MEAN CORPUS HGB CONC 32.5 g/dL (32.0-36.0); MEAN CORPUSCULAR HEMOGLOB 28.5 pg (26.0-34.0); MEAN CORPUSCULAR VOLUME 87.9 fL (80-100); MEAN PLATELET VOLUME 10.4 fL (9.2-13.0); MONOCYTES 6.9 %; MONOCYTES ABSOLUTE 0.53 10/3/uL (0.21-1.20); NEUTROPHILS ABSOLUTE 5.64 10/3/uL (2.02-8.40); PLATELET COUNT 227 10/3/uL (150-400); RBC DISTRIBUTION WIDTH 14.5 % (12.0-16.0); WHITE BLOOD CELLS 7.7 10/3/uL (4.5-10.5)
[2016-04-15 04:20] LABS: HEMATOCRIT 26.8 % (40.0-51.0); HEMOGLOBIN 8.7 g/dL (13.6-17.8); RED CELL COUNT 3.05 10/6/uL (4.7-6.1)
[2016-04-15 04:21] LABS: MANUAL DIFF NO %
[2016-04-15 04:28] LABS: INTERNATIONAL NORMAL RATI 1.3 UNITS (-); PARTIAL THROMBO TIME 28.9 SEC (22.5-37.2); PROTIME (NOT ORD) 15.6 SEC (12.0-14.5)
[2016-04-15 04:43] LABS: CHLORIDE, SERUM 121 MMOL/L (96-112); GLUCOSE, SERUM 95 MG/DL (60-99); PHOSPHORUS, SERUM 3.3 MG/DL (2.5-4.5); SGOT(AST) 12 U/L (5-40); SGPT(ALT) 10 U/L (5-65); SODIUM, SERUM 150 MMOL/L (135-148); TROPONIN I 0.02 NG/ML (<0.05)
[2016-04-15 04:44] LABS: A/G RATIO 0.8 (0.7-1.9); ALBUMIN 2.3 G/DL (3.5-5.0); ALKALINE PHOSPHATASE 120 U/L (45-117); BUN (BLOOD UREA NITROGEN) 40 MG/DL (6-23); CALCIUM, SERUM 6.7 MG/DL (8.5-10.4); CO2 (CARBON DIOXIDE) 17 MMOL/L (24-34); CREATININE 2.88 MG/DL (0.70-1.30); GFR AFRICAN AMERICAN 24 ML/MIN (>=60); GFR NON AFRICAN AMERICAN 21 ML/MIN (>=60); GLOBULIN 2.8 G/DL (2.5-4.1); POTASSIUM, SERUM 2.9 MMOL/L (3.5-5.3); TOTAL PROTEIN 5.1 G/DL (6.0-8.5)
[2016-04-15 06:31] LABS: PROCALCITONIN 0.08 ng/mL (<0.5)
[2016-04-15 12:20] LABS: HEMATOCRIT 27.6 % (40.0-51.0); HEMOGLOBIN 8.9 g/dL (13.6-17.8)
[2016-04-16 07:33] LABS: BASOPHILS 0.3 %; BASOPHILS ABSOLUTE 0.02 10/3/uL (0.0-0.16); EOSINOPHILS 1.6 %; EOSINOPHILS ABSOLUTE 0.09 10/3/uL (0.0-0.53); HEMATOCRIT 25.5 % (40.0-51.0); HEMOGLOBIN 8.2 g/dL (13.6-17.8); IMMATURE GRANULOCYTES 0.7 %; IMMATURE GRANULOCYTES ABSOLUTE 0.04 10/3/uL (0.0-0.11); LYMPHOCYTES 23.5 %; LYMPHOCYTES ABSOLUTE 1.35 10/3/uL (0.67-4.30); MEAN CORPUS HGB CONC 32.2 g/dL (32.0-36.0); MEAN CORPUSCULAR HEMOGLOB 28.2 pg (26.0-34.0); MEAN CORPUSCULAR VOLUME 87.6 fL (80-100); MEAN PLATELET VOLUME 10.9 fL (9.2-13.0); MONOCYTES 6.8 %; MONOCYTES ABSOLUTE 0.39 10/3/uL (0.21-1.20); NEUTROPHILS 67.1 %; NEUTROPHILS ABSOLUTE 3.85 10/3/uL (2.02-8.40); PLATELET COUNT 202 10/3/uL (150-400); RBC DISTRIBUTION WIDTH 14.4 % (12.0-16.0); RED CELL COUNT 2.91 10/6/uL (4.7-6.1); WHITE BLOOD CELLS 5.7 10/3/uL (4.5-10.5)
[2016-04-16 07:35] LABS: MANUAL DIFF NO %
[2016-04-16 07:47] LABS: BUN (BLOOD UREA NITROGEN) 39 MG/DL (6-23); CHLORIDE, SERUM 112 MMOL/L (96-112); SODIUM, SERUM 145 MMOL/L (135-148)
[2016-04-16 07:49] LABS: CALCIUM, SERUM 8.4 MG/DL (8.5-10.4); CO2 (CARBON DIOXIDE) 24 MMOL/L (24-34); CREATININE 3.38 MG/DL (0.70-1.30); GFR AFRICAN AMERICAN 20 ML/MIN (>=60); GFR NON AFRICAN AMERICAN 17 ML/MIN (>=60); GLUCOSE, SERUM 118 MG/DL (60-99); POTASSIUM, SERUM 4.4 MMOL/L (3.5-5.3)
[2016-04-16 18:50] LABS: HEMATOCRIT 26.6 % (40.0-51.0); HEMOGLOBIN 8.6 g/dL (13.6-17.8)
[2016-04-17 04:49] LABS: BASOPHILS 0.2 %; BASOPHILS ABSOLUTE 0.01 10/3/uL (0.0-0.16); EOSINOPHILS 1.7 %; EOSINOPHILS ABSOLUTE 0.09 10/3/uL (0.0-0.53); HEMATOCRIT 24.3 % (40.0-51.0); HEMOGLOBIN 7.8 g/dL (13.6-17.8); IMMATURE GRANULOCYTES 0.4 %; IMMATURE GRANULOCYTES ABSOLUTE 0.02 10/3/uL (0.0-0.11); LYMPHOCYTES 24.1 %; LYMPHOCYTES ABSOLUTE 1.28 10/3/uL (0.67-4.30); MEAN CORPUS HGB CONC 32.1 g/dL (32.0-36.0); MEAN CORPUSCULAR HEMOGLOB 28.3 pg (26.0-34.0); MEAN PLATELET VOLUME 10.7 fL (9.2-13.0); MONOCYTES 8.1 %; MONOCYTES ABSOLUTE 0.43 10/3/uL (0.21-1.20); NEUTROPHILS 65.5 %; NEUTROPHILS ABSOLUTE 3.49 10/3/uL (2.02-8.40); PLATELET COUNT 185 10/3/uL (150-400); RBC DISTRIBUTION WIDTH 14.2 % (12.0-16.0); RED CELL COUNT 2.76 10/6/uL (4.7-6.1); WHITE BLOOD CELLS 5.3 10/3/uL (4.5-10.5)
[2016-04-17 04:50] LABS: MANUAL DIFF NO %
[2016-04-17 05:01] LABS: ALBUMIN 2.5 G/DL (3.5-5.0); CALCIUM, SERUM 8.3 MG/DL (8.5-10.4); CHLORIDE, SERUM 108 MMOL/L (96-112); CO2 (CARBON DIOXIDE) 27 MMOL/L (24-34); CREATININE 3.29 MG/DL (0.70-1.30); GFR AFRICAN AMERICAN 20 ML/MIN (>=60); GFR NON AFRICAN AMERICAN 17 ML/MIN (>=60); GLUCOSE, SERUM 113 MG/DL (60-99); PHOSPHORUS, SERUM 3.5 MG/DL (2.5-4.5); SODIUM, SERUM 145 MMOL/L (135-148)
[2016-04-17 05:02] LABS: BUN (BLOOD UREA NITROGEN) 33 MG/DL (6-23)
[2016-04-18 11:39] LABS: BASOPHILS 0.5 %; BASOPHILS ABSOLUTE 0.03 10/3/uL (0.0-0.16); EOSINOPHILS 1.4 %; EOSINOPHILS ABSOLUTE 0.08 10/3/uL (0.0-0.53); HEMATOCRIT 26.2 % (40.0-51.0); HEMOGLOBIN 8.3 g/dL (13.6-17.8); IMMATURE GRANULOCYTES 0.2 %; IMMATURE GRANULOCYTES ABSOLUTE 0.01 10/3/uL (0.0-0.11); LYMPHOCYTES 16.2 %; LYMPHOCYTES ABSOLUTE 0.95 10/3/uL (0.67-4.30); MEAN CORPUS HGB CONC 31.7 g/dL (32.0-36.0); MEAN CORPUSCULAR HEMOGLOB 27.6 pg (26.0-34.0); MEAN PLATELET VOLUME 11.6 fL (9.2-13.0); MONOCYTES 7.5 %; MONOCYTES ABSOLUTE 0.44 10/3/uL (0.21-1.20); NEUTROPHILS 74.2 %; NEUTROPHILS ABSOLUTE 4.37 10/3/uL (2.02-8.40); PLATELET COUNT 198 10/3/uL (150-400); RED CELL COUNT 3.01 10/6/uL (4.7-6.1); WHITE BLOOD CELLS 5.9 10/3/uL (4.5-10.5)
[2016-04-18 11:40] LABS: MANUAL DIFF NO %
[2016-04-18 12:01] LABS: BUN (BLOOD UREA NITROGEN) 31 MG/DL (6-23); CALCIUM, SERUM 8.5 MG/DL (8.5-10.4); CHLORIDE, SERUM 107 MMOL/L (96-112); CO2 (CARBON DIOXIDE) 24 MMOL/L (24-34); CREATININE 3.17 MG/DL (0.70-1.30); GFR AFRICAN AMERICAN 21 ML/MIN (>=60); GFR NON AFRICAN AMERICAN 18 ML/MIN (>=60); GLUCOSE, SERUM 92 MG/DL (60-99); SODIUM, SERUM 143 MMOL/L (135-148)
[2016-04-19 04:31] LABS: BASOPHILS 0.2 %; BASOPHILS ABSOLUTE 0.01 10/3/uL (0.0-0.16); EOSINOPHILS 0.6 %; EOSINOPHILS ABSOLUTE 0.03 10/3/uL (0.0-0.53); HEMATOCRIT 25.6 % (40.0-51.0); HEMOGLOBIN 8.1 g/dL (13.6-17.8); IMMATURE GRANULOCYTES 0.4 %; IMMATURE GRANULOCYTES ABSOLUTE 0.02 10/3/uL (0.0-0.11); LYMPHOCYTES 19.4 %; LYMPHOCYTES ABSOLUTE 1.03 10/3/uL (0.67-4.30); MEAN CORPUS HGB CONC 31.6 g/dL (32.0-36.0); MEAN CORPUSCULAR HEMOGLOB 27.7 pg (26.0-34.0); MEAN CORPUSCULAR VOLUME 87.7 fL (80-100); MEAN PLATELET VOLUME 11.8 fL (9.2-13.0); MONOCYTES 8.9 %; MONOCYTES ABSOLUTE 0.47 10/3/uL (0.21-1.20); NEUTROPHILS 70.5 %; NEUTROPHILS ABSOLUTE 3.75 10/3/uL (2.02-8.40); PLATELET COUNT 184 10/3/uL (150-400); RBC DISTRIBUTION WIDTH 13.6 % (12.0-16.0); RED CELL COUNT 2.92 10/6/uL (4.7-6.1); WHITE BLOOD CELLS 5.3 10/3/uL (4.5-10.5)
[2016-04-19 04:33] LABS: MANUAL DIFF NO %
[2016-04-19 04:46] LABS: BUN (BLOOD UREA NITROGEN) 31 MG/DL (6-23); CALCIUM, SERUM 8.3 MG/DL (8.5-10.4); CHLORIDE, SERUM 110 MMOL/L (96-112); CO2 (CARBON DIOXIDE) 22 MMOL/L (24-34); CREATININE 3.11 MG/DL (0.70-1.30); GFR AFRICAN AMERICAN 22 ML/MIN (>=60); GFR NON AFRICAN AMERICAN 19 ML/MIN (>=60); GLUCOSE, SERUM 95 MG/DL (60-99); POTASSIUM, SERUM 3.8 MMOL/L (3.5-5.3); SODIUM, SERUM 144 MMOL/L (135-148)
[2016-04-19 11:26] LABS: ALBUMIN 2.6 G/DL (3.5-5.0); SGOT(AST) 14 U/L (5-40); SGPT(ALT) 12 U/L (5-65); TOTAL PROTEIN 5.8 G/DL (6.0-8.5)
[2016-04-19 11:32] LABS: ALKALINE PHOSPHATASE 135 U/L (45-117); DIRECT BILIRUBIN < 0.1 MG/DL (0.0-0.4); INDIRECT BILIRUBIN(NOT ORDER) 0.1 MG/DL (0.1-0.9); TOTAL BILIRUBIN 0.2 MG/DL (0-1.2)
[2016-04-21 08:45] LABS: BUN (BLOOD UREA NITROGEN) 30 MG/DL (6-23); CALCIUM, SERUM 8.1 MG/DL (8.5-10.4); CHLORIDE, SERUM 115 MMOL/L (96-112); CO2 (CARBON DIOXIDE) 24 MMOL/L (24-34); CREATININE 2.75 MG/DL (0.70-1.30); GFR AFRICAN AMERICAN 25 ML/MIN (>=60); GFR NON AFRICAN AMERICAN 22 ML/MIN (>=60); GLUCOSE, SERUM 104 MG/DL (60-99); POTASSIUM, SERUM 3.6 MMOL/L (3.5-5.3); SODIUM, SERUM 149 MMOL/L (135-148)
[2016-04-21 12:57] LABS: BASOPHILS 0.2 %; BASOPHILS ABSOLUTE 0.01 10/3/uL (0.0-0.16); EOSINOPHILS 0.5 %; EOSINOPHILS ABSOLUTE 0.03 10/3/uL (0.0-0.53); HEMOGLOBIN 8.8 g/dL (13.6-17.8); IMMATURE GRANULOCYTES 0.2 %; IMMATURE GRANULOCYTES ABSOLUTE 0.01 10/3/uL (0.0-0.11); LYMPHOCYTES 15.9 %; LYMPHOCYTES ABSOLUTE 1.01 10/3/uL (0.67-4.30); MEAN CORPUS HGB CONC 30.4 g/dL (32.0-36.0); MEAN CORPUSCULAR HEMOGLOB 26.7 pg (26.0-34.0); MEAN CORPUSCULAR VOLUME 87.8 fL (80-100); MEAN PLATELET VOLUME 12.1 fL (9.2-13.0); MONOCYTES 5.5 %; MONOCYTES ABSOLUTE 0.35 10/3/uL (0.21-1.20); NEUTROPHILS 77.7 %; NEUTROPHILS ABSOLUTE 4.94 10/3/uL (2.02-8.40); PLATELET COUNT 189 10/3/uL (150-400); RBC DISTRIBUTION WIDTH 13.9 % (12.0-16.0); RED CELL COUNT 3.29 10/6/uL (4.7-6.1); WHITE BLOOD CELLS 6.4 10/3/uL (4.5-10.5)
[2016-04-21 12:58] LABS: HEMATOCRIT 28.9 % (40.0-51.0); MANUAL DIFF NO %
[2016-04-21 13:04] LABS: PROTIME (NOT ORD) 13.5 SEC (12.0-14.5)
[2016-04-21 15:41] LABS: WBC (NOT ORDERED) (RFLEX) 0 (0-5)
[2016-04-21 15:54] LABS: ASCORBIC ACID (UR NOT ORDER) NEG (NEG); BILIRUBIN, URINE NEGATIVE (NEG); KETONE, URINE TRACE MG/DL (NEG); LEUKOCYTE ESTERASE(NOT OR NEG (NEG)
[2016-04-22 07:34] LABS: BASOPHILS 0.3 %; BASOPHILS ABSOLUTE 0.02 10/3/uL (0.0-0.16); EOSINOPHILS 1.6 %; EOSINOPHILS ABSOLUTE 0.09 10/3/uL (0.0-0.53); HEMOGLOBIN 7.3 g/dL (13.6-17.8); IMMATURE GRANULOCYTES 0.3 %; IMMATURE GRANULOCYTES ABSOLUTE 0.02 10/3/uL (0.0-0.11); LYMPHOCYTES 11.1 %; LYMPHOCYTES ABSOLUTE 0.64 10/3/uL (0.67-4.30); MEAN CORPUS HGB CONC 31.7 g/dL (32.0-36.0); MEAN CORPUSCULAR HEMOGLOB 27.4 pg (26.0-34.0); MEAN CORPUSCULAR VOLUME 86.5 fL (80-100); MEAN PLATELET VOLUME 11.9 fL (9.2-13.0); MONOCYTES ABSOLUTE 0.46 10/3/uL (0.21-1.20); NEUTROPHILS 78.7 %; NEUTROPHILS ABSOLUTE 4.53 10/3/uL (2.02-8.40); PLATELET COUNT 158 10/3/uL (150-400); RBC DISTRIBUTION WIDTH 13.9 % (12.0-16.0); RED CELL COUNT 2.66 10/6/uL (4.7-6.1); WHITE BLOOD CELLS 5.8 10/3/uL (4.5-10.5)
[2016-04-22 07:36] LABS: INTERNATIONAL NORMAL RATI 1.1 UNITS (-); PROTIME (NOT ORD) 14.5 SEC (12.0-14.5)
[2016-04-22 07:37] LABS: MANUAL DIFF NO %
[2016-04-22 08:05] LABS: BUN (BLOOD UREA NITROGEN) 23 MG/DL (6-23); CALCIUM, SERUM 8.4 MG/DL (8.5-10.4); CHLORIDE, SERUM 114 MMOL/L (96-112); CO2 (CARBON DIOXIDE) 22 MMOL/L (24-34); CREATININE 2.63 MG/DL (0.70-1.30); GFR AFRICAN AMERICAN 27 ML/MIN (>=60); GFR NON AFRICAN AMERICAN 23 ML/MIN (>=60); GLUCOSE, SERUM 114 MG/DL (60-99); POTASSIUM, SERUM 3.4 MMOL/L (3.5-5.3); SODIUM, SERUM 146 MMOL/L (135-148)
[2016-04-23 05:36] LABS: BASOPHILS 0.2 %; BASOPHILS ABSOLUTE 0.01 10/3/uL (0.0-0.16); EOSINOPHILS 1.8 %; EOSINOPHILS ABSOLUTE 0.08 10/3/uL (0.0-0.53); HEMOGLOBIN 8.6 g/dL (13.6-17.8); IMMATURE GRANULOCYTES 0.2 %; IMMATURE GRANULOCYTES ABSOLUTE 0.01 10/3/uL (0.0-0.11); LYMPHOCYTES 10.1 %; LYMPHOCYTES ABSOLUTE 0.46 10/3/uL (0.67-4.30); MEAN CORPUS HGB CONC 31.9 g/dL (32.0-36.0); MEAN CORPUSCULAR HEMOGLOB 26.6 pg (26.0-34.0); MEAN PLATELET VOLUME 12.2 fL (9.2-13.0); MONOCYTES 10.1 %; MONOCYTES ABSOLUTE 0.46 10/3/uL (0.21-1.20); NEUTROPHILS 77.6 %; NEUTROPHILS ABSOLUTE 3.52 10/3/uL (2.02-8.40); PLATELET COUNT 160 10/3/uL (150-400); RBC DISTRIBUTION WIDTH 15.7 % (12.0-16.0); WHITE BLOOD CELLS 4.5 10/3/uL (4.5-10.5)
[2016-04-23 05:40] LABS: BUN (BLOOD UREA NITROGEN) 22 MG/DL (6-23); CHLORIDE, SERUM 109 MMOL/L (96-112); CO2 (CARBON DIOXIDE) 23 MMOL/L (24-34); CREATININE 2.78 MG/DL (0.70-1.30); GFR AFRICAN AMERICAN 25 ML/MIN (>=60); GFR NON AFRICAN AMERICAN 21 ML/MIN (>=60); GLUCOSE, SERUM 112 MG/DL (60-99); POTASSIUM, SERUM 3.2 MMOL/L (3.5-5.3); SODIUM, SERUM 143 MMOL/L (135-148)
[2016-04-23 05:46] LABS: MANUAL DIFF NO %; MEAN CORPUSCULAR VOLUME 83.6 fL (80-100); RED CELL COUNT 3.23 10/6/uL (4.7-6.1)
[2016-04-24 05:37] LABS: BUN (BLOOD UREA NITROGEN) 19 MG/DL (6-23); CALCIUM, SERUM 7.8 MG/DL (8.5-10.4); CHLORIDE, SERUM 114 MMOL/L (96-112); CO2 (CARBON DIOXIDE) 22 MMOL/L (24-34); CREATININE 2.75 MG/DL (0.70-1.30); GFR AFRICAN AMERICAN 25 ML/MIN (>=60); GFR NON AFRICAN AMERICAN 22 ML/MIN (>=60); GLUCOSE, SERUM 118 MG/DL (60-99); POTASSIUM, SERUM 3.6 MMOL/L (3.5-5.3); SODIUM, SERUM 146 MMOL/L (135-148)
[2016-04-25 06:31] LABS: BUN (BLOOD UREA NITROGEN) 20 MG/DL (6-23); CALCIUM, SERUM 7.9 MG/DL (8.5-10.4); CHLORIDE, SERUM 117 MMOL/L (96-112); CO2 (CARBON DIOXIDE) 21 MMOL/L (24-34); CREATININE 2.53 MG/DL (0.70-1.30); GFR AFRICAN AMERICAN 28 ML/MIN (>=60); GFR NON AFRICAN AMERICAN 24 ML/MIN (>=60); GLUCOSE, SERUM 112 MG/DL (60-99); POTASSIUM, SERUM 3.8 MMOL/L (3.5-5.3); SODIUM, SERUM 146 MMOL/L (135-148)
[2016-04-25 06:32] LABS: BASOPHILS 0.2 %; BASOPHILS ABSOLUTE 0.01 10/3/uL (0.0-0.16); EOSINOPHILS 1.3 %; EOSINOPHILS ABSOLUTE 0.07 10/3/uL (0.0-0.53); HEMATOCRIT 28.1 % (40.0-51.0); HEMOGLOBIN 8.8 g/dL (13.6-17.8); IMMATURE GRANULOCYTES 0.6 %; IMMATURE GRANULOCYTES ABSOLUTE 0.03 10/3/uL (0.0-0.11); LYMPHOCYTES 12.5 %; LYMPHOCYTES ABSOLUTE 0.66 10/3/uL (0.67-4.30); MEAN CORPUS HGB CONC 31.3 g/dL (32.0-36.0); MEAN CORPUSCULAR HEMOGLOB 26.7 pg (26.0-34.0); MEAN CORPUSCULAR VOLUME 85.2 fL (80-100); MEAN PLATELET VOLUME 12.2 fL (9.2-13.0); MONOCYTES 10.4 %; MONOCYTES ABSOLUTE 0.55 10/3/uL (0.21-1.20); NEUTROPHILS ABSOLUTE 3.98 10/3/uL (2.02-8.40); PLATELET COUNT 138 10/3/uL (150-400); RBC DISTRIBUTION WIDTH 15.6 % (12.0-16.0); WHITE BLOOD CELLS 5.3 10/3/uL (4.5-10.5)
[2016-04-25 06:35] LABS: MANUAL DIFF NO %
[2016-04-26 07:21] LABS: BASOPHILS 0.2 %; BASOPHILS ABSOLUTE 0.01 10/3/uL (0.0-0.16); EOSINOPHILS 2.2 %; HEMOGLOBIN 7.6 g/dL (13.6-17.8); IMMATURE GRANULOCYTES 0.4 %; IMMATURE GRANULOCYTES ABSOLUTE 0.02 10/3/uL (0.0-0.11); LYMPHOCYTES 22.8 %; LYMPHOCYTES ABSOLUTE 1.02 10/3/uL (0.67-4.30); MEAN CORPUS HGB CONC 31.9 g/dL (32.0-36.0); MEAN CORPUSCULAR HEMOGLOB 26.4 pg (26.0-34.0); MEAN PLATELET VOLUME 11.8 fL (9.2-13.0); MONOCYTES 10.5 %; MONOCYTES ABSOLUTE 0.47 10/3/uL (0.21-1.20); NEUTROPHILS 63.9 %; NEUTROPHILS ABSOLUTE 2.86 10/3/uL (2.02-8.40); PLATELET COUNT 131 10/3/uL (150-400); RBC DISTRIBUTION WIDTH 15.8 % (12.0-16.0); RED CELL COUNT 2.88 10/6/uL (4.7-6.1); WHITE BLOOD CELLS 4.5 10/3/uL (4.5-10.5)
[2016-04-26 07:22] LABS: HEMATOCRIT 23.8 % (40.0-51.0); MANUAL DIFF NO %; MEAN CORPUSCULAR VOLUME 82.6 fL (80-100)
[2016-04-26 07:37] LABS: ALBUMIN 2.1 G/DL (3.5-5.0); ALKALINE PHOSPHATASE 113 U/L (45-117); BUN (BLOOD UREA NITROGEN) 20 MG/DL (6-23); CALCIUM, SERUM 8.2 MG/DL (8.5-10.4); CHLORIDE, SERUM 115 MMOL/L (96-112); CO2 (CARBON DIOXIDE) 22 MMOL/L (24-34); CREATININE 2.57 MG/DL (0.70-1.30); DIRECT BILIRUBIN 0.1 MG/DL (0.0-0.4); GFR AFRICAN AMERICAN 27 ML/MIN (>=60); GFR NON AFRICAN AMERICAN 24 ML/MIN (>=60); GLUCOSE, SERUM 97 MG/DL (60-99); INDIRECT BILIRUBIN(NOT ORDER) 0.9 MG/DL (0.1-0.9); PHOSPHORUS, SERUM 1.9 MG/DL (2.5-4.5); POTASSIUM, SERUM 3.7 MMOL/L (3.5-5.3); SGOT(AST) 8 U/L (5-40); SGPT(ALT) 9 U/L (5-65); SODIUM, SERUM 146 MMOL/L (135-148); TOTAL PROTEIN 5.2 G/DL (6.0-8.5)
[2016-04-26 07:42] LABS: BASOPHILS 0.2 %; BASOPHILS ABSOLUTE 0.01 10/3/uL (0.0-0.16); HEMATOCRIT 25.5 % (40.0-51.0); HEMOGLOBIN 8.2 g/dL (13.6-17.8); IMMATURE GRANULOCYTES 0.4 %; IMMATURE GRANULOCYTES ABSOLUTE 0.02 10/3/uL (0.0-0.11); LYMPHOCYTES 23.3 %; LYMPHOCYTES ABSOLUTE 1.17 10/3/uL (0.67-4.30); MANUAL DIFF NO %; MEAN CORPUS HGB CONC 32.2 g/dL (32.0-36.0); MEAN CORPUSCULAR HEMOGLOB 26.3 pg (26.0-34.0); MEAN CORPUSCULAR VOLUME 81.7 fL (80-100); MEAN PLATELET VOLUME 11.9 fL (9.2-13.0); MONOCYTES 8.9 %; MONOCYTES ABSOLUTE 0.45 10/3/uL (0.21-1.20); NEUTROPHILS 65.2 %; NEUTROPHILS ABSOLUTE 3.28 10/3/uL (2.02-8.40); PLATELET COUNT 148 10/3/uL (150-400); RED CELL COUNT 3.12 10/6/uL (4.7-6.1)
[2016-04-26 07:47] LABS: BUN (BLOOD UREA NITROGEN) 21 MG/DL (6-23); CALCIUM, SERUM 8.2 MG/DL (8.5-10.4); CHLORIDE, SERUM 115 MMOL/L (96-112); CO2 (CARBON DIOXIDE) 21 MMOL/L (24-34); CREATININE 2.63 MG/DL (0.70-1.30); GFR AFRICAN AMERICAN 27 ML/MIN (>=60); GFR NON AFRICAN AMERICAN 23 ML/MIN (>=60); GLUCOSE, SERUM 97 MG/DL (60-99); POTASSIUM, SERUM 3.8 MMOL/L (3.5-5.3); SODIUM, SERUM 144 MMOL/L (135-148)
[2016-04-27 06:49] LABS: BASOPHILS 0.2 %; BASOPHILS ABSOLUTE 0.01 10/3/uL (0.0-0.16); EOSINOPHILS 2.6 %; EOSINOPHILS ABSOLUTE 0.13 10/3/uL (0.0-0.53); HEMATOCRIT 23.9 % (40.0-51.0); HEMOGLOBIN 7.6 g/dL (13.6-17.8); IMMATURE GRANULOCYTES 0.2 %; IMMATURE GRANULOCYTES ABSOLUTE 0.01 10/3/uL (0.0-0.11); LYMPHOCYTES 15.9 %; LYMPHOCYTES ABSOLUTE 0.81 10/3/uL (0.67-4.30); MEAN CORPUS HGB CONC 31.8 g/dL (32.0-36.0); MEAN CORPUSCULAR HEMOGLOB 26.8 pg (26.0-34.0); MEAN PLATELET VOLUME 12.3 fL (9.2-13.0); MONOCYTES 8.5 %; MONOCYTES ABSOLUTE 0.43 10/3/uL (0.21-1.20); NEUTROPHILS 72.6 %; NEUTROPHILS ABSOLUTE 3.69 10/3/uL (2.02-8.40); PLATELET COUNT 133 10/3/uL (150-400); RBC DISTRIBUTION WIDTH 15.8 % (12.0-16.0); RED CELL COUNT 2.84 10/6/uL (4.7-6.1); WHITE BLOOD CELLS 5.1 10/3/uL (4.5-10.5)
[2016-04-27 06:50] LABS: MANUAL DIFF NO %; MEAN CORPUSCULAR VOLUME 84.2 fL (80-100)
[2016-04-27 06:58] LABS: BUN (BLOOD UREA NITROGEN) 21 MG/DL (6-23); CALCIUM, SERUM 8.2 MG/DL (8.5-10.4); CHLORIDE, SERUM 112 MMOL/L (96-112); CO2 (CARBON DIOXIDE) 22 MMOL/L (24-34); GFR AFRICAN AMERICAN 28 ML/MIN (>=60); GFR NON AFRICAN AMERICAN 24 ML/MIN (>=60); GLUCOSE, SERUM 105 MG/DL (60-99); POTASSIUM, SERUM 3.6 MMOL/L (3.5-5.3); SODIUM, SERUM 143 MMOL/L (135-148)
[2016-04-28 06:03] LABS: BUN (BLOOD UREA NITROGEN) 22 MG/DL (6-23); CALCIUM, SERUM 8.3 MG/DL (8.5-10.4); CHLORIDE, SERUM 111 MMOL/L (96-112); CO2 (CARBON DIOXIDE) 22 MMOL/L (24-34); CREATININE 2.87 MG/DL (0.70-1.30); GFR AFRICAN AMERICAN 24 ML/MIN (>=60); GFR NON AFRICAN AMERICAN 21 ML/MIN (>=60); POTASSIUM, SERUM 4.3 MMOL/L (3.5-5.3); SODIUM, SERUM 144 MMOL/L (135-148)
[2016-04-28 06:04] LABS: GLUCOSE, SERUM 128 MG/DL (60-99)
[2016-04-28 06:07] LABS: RETICULOCYTE COUNT 1.4 % (0.5-2.5)
[2016-04-28 08:18] LABS: BASOPHILS 0 %; EOSINOPHILS 0 %; HEMATOCRIT 24.2 % (40.0-51.0); HEMOGLOBIN 7.7 g/dL (13.6-17.8); IMMATURE GRANULOCYTES 0.4 %; IMMATURE GRANULOCYTES ABSOLUTE 0.02 10/3/uL (0.0-0.11); LYMPHOCYTES 14.7 %; LYMPHOCYTES ABSOLUTE 0.66 10/3/uL (0.67-4.30); MEAN CORPUS HGB CONC 31.8 g/dL (32.0-36.0); MEAN CORPUSCULAR HEMOGLOB 25.9 pg (26.0-34.0); MEAN PLATELET VOLUME 11.7 fL (9.2-13.0); MONOCYTES 10.9 %; MONOCYTES ABSOLUTE 0.49 10/3/uL (0.21-1.20); NEUTROPHILS ABSOLUTE 3.33 10/3/uL (2.02-8.40); PLATELET COUNT 148 10/3/uL (150-400); RBC DISTRIBUTION WIDTH 15.7 % (12.0-16.0); RED CELL COUNT 2.97 10/6/uL (4.7-6.1); WHITE BLOOD CELLS 4.5 10/3/uL (4.5-10.5)
[2016-04-28 08:19] LABS: MANUAL DIFF NO %; MEAN CORPUSCULAR VOLUME 81.5 fL (80-100)
[2016-04-29 08:40] LABS: BASOPHILS 0.2 %; BASOPHILS ABSOLUTE 0.01 10/3/uL (0.0-0.16); EOSINOPHILS 3.3 %; EOSINOPHILS ABSOLUTE 0.17 10/3/uL (0.0-0.53); HEMOGLOBIN 9.2 g/dL (13.6-17.8); IMMATURE GRANULOCYTES 0.8 %; IMMATURE GRANULOCYTES ABSOLUTE 0.04 10/3/uL (0.0-0.11); LYMPHOCYTES 18.4 %; LYMPHOCYTES ABSOLUTE 0.96 10/3/uL (0.67-4.30); MEAN CORPUS HGB CONC 31.5 g/dL (32.0-36.0); MEAN CORPUSCULAR HEMOGLOB 26.1 pg (26.0-34.0); MEAN PLATELET VOLUME 11.7 fL (9.2-13.0); MONOCYTES 5.5 %; MONOCYTES ABSOLUTE 0.29 10/3/uL (0.21-1.20); NEUTROPHILS 71.8 %; NEUTROPHILS ABSOLUTE 3.76 10/3/uL (2.02-8.40); PLATELET COUNT 154 10/3/uL (150-400); RBC DISTRIBUTION WIDTH 15.3 % (12.0-16.0); RED CELL COUNT 3.52 10/6/uL (4.7-6.1); WHITE BLOOD CELLS 5.2 10/3/uL (4.5-10.5)
[2016-04-29 08:41] LABS: HEMATOCRIT 29.2 % (40.0-51.0); MANUAL DIFF NO %
[2016-04-29 08:47] LABS: BUN (BLOOD UREA NITROGEN) 21 MG/DL (6-23); CALCIUM, SERUM 8.3 MG/DL (8.5-10.4); CHLORIDE, SERUM 108 MMOL/L (96-112); CO2 (CARBON DIOXIDE) 23 MMOL/L (24-34); CREATININE 2.72 MG/DL (0.70-1.30); GFR AFRICAN AMERICAN 26 ML/MIN (>=60); GFR NON AFRICAN AMERICAN 22 ML/MIN (>=60); GLUCOSE, SERUM 114 MG/DL (60-99); POTASSIUM, SERUM 3.8 MMOL/L (3.5-5.3); SODIUM, SERUM 142 MMOL/L (135-148)
[2016-04-30 06:43] LABS: BASOPHILS 0.2 %; BASOPHILS ABSOLUTE 0.01 10/3/uL (0.0-0.16); EOSINOPHILS 3.7 %; EOSINOPHILS ABSOLUTE 0.19 10/3/uL (0.0-0.53); HEMATOCRIT 28.4 % (40.0-51.0); HEMOGLOBIN 9.2 g/dL (13.6-17.8); IMMATURE GRANULOCYTES 1.4 %; IMMATURE GRANULOCYTES ABSOLUTE 0.07 10/3/uL (0.0-0.11); LYMPHOCYTES 26.7 %; LYMPHOCYTES ABSOLUTE 1.38 10/3/uL (0.67-4.30); MEAN CORPUS HGB CONC 32.4 g/dL (32.0-36.0); MEAN CORPUSCULAR HEMOGLOB 27.1 pg (26.0-34.0); MEAN CORPUSCULAR VOLUME 83.8 fL (80-100); MEAN PLATELET VOLUME 11.6 fL (9.2-13.0); MONOCYTES 7.2 %; MONOCYTES ABSOLUTE 0.37 10/3/uL (0.21-1.20); NEUTROPHILS 60.8 %; NEUTROPHILS ABSOLUTE 3.14 10/3/uL (2.02-8.40); PLATELET COUNT 164 10/3/uL (150-400); RBC DISTRIBUTION WIDTH 15.2 % (12.0-16.0); RED CELL COUNT 3.39 10/6/uL (4.7-6.1); WHITE BLOOD CELLS 5.2 10/3/uL (4.5-10.5)
[2016-04-30 06:46] LABS: MANUAL DIFF NO %
[2016-04-30 06:53] LABS: ALBUMIN 2.1 G/DL (3.5-5.0); BUN (BLOOD UREA NITROGEN) 21 MG/DL (6-23); CHLORIDE, SERUM 110 MMOL/L (96-112); CO2 (CARBON DIOXIDE) 25 MMOL/L (24-34); CREATININE 2.57 MG/DL (0.70-1.30); GFR AFRICAN AMERICAN 27 ML/MIN (>=60); GFR NON AFRICAN AMERICAN 24 ML/MIN (>=60); GLUCOSE, SERUM 101 MG/DL (60-99); PHOSPHORUS, SERUM 2.7 MG/DL (2.5-4.5); POTASSIUM, SERUM 3.8 MMOL/L (3.5-5.3); SODIUM, SERUM 145 MMOL/L (135-148)
[2016-04-30 15:49] LABS: BASOPHILS 0.2 %; BASOPHILS ABSOLUTE 0.01 10/3/uL (0.0-0.16); EOSINOPHILS 0.4 %; EOSINOPHILS ABSOLUTE 0.02 10/3/uL (0.0-0.53); HEMATOCRIT 28.4 % (40.0-51.0); IMMATURE GRANULOCYTES 1.2 %; IMMATURE GRANULOCYTES ABSOLUTE 0.06 10/3/uL (0.0-0.11); LYMPHOCYTES 14.3 %; LYMPHOCYTES ABSOLUTE 0.72 10/3/uL (0.67-4.30); MEAN CORPUS HGB CONC 31.7 g/dL (32.0-36.0); MEAN CORPUSCULAR HEMOGLOB 26.2 pg (26.0-34.0); MEAN CORPUSCULAR VOLUME 82.8 fL (80-100); MEAN PLATELET VOLUME 11.1 fL (9.2-13.0); MONOCYTES 2.4 %; MONOCYTES ABSOLUTE 0.12 10/3/uL (0.21-1.20); NEUTROPHILS 81.5 %; NEUTROPHILS ABSOLUTE 4.09 10/3/uL (2.02-8.40); PLATELET COUNT 150 10/3/uL (150-400); RBC DISTRIBUTION WIDTH 15.4 % (12.0-16.0); RED CELL COUNT 3.43 10/6/uL (4.7-6.1)
[2016-04-30 15:50] LABS: MANUAL DIFF NO %
[2016-04-30 16:19] LABS: BUN (BLOOD UREA NITROGEN) 18 MG/DL (6-23); CALCIUM, SERUM 7.9 MG/DL (8.5-10.4); CHLORIDE, SERUM 110 MMOL/L (96-112); CO2 (CARBON DIOXIDE) 24 MMOL/L (24-34); CREATININE 2.59 MG/DL (0.70-1.30); GFR AFRICAN AMERICAN 27 ML/MIN (>=60); GFR NON AFRICAN AMERICAN 23 ML/MIN (>=60); PHOSPHORUS, SERUM 2.1 MG/DL (2.5-4.5); POTASSIUM, SERUM 3.5 MMOL/L (3.5-5.3); SODIUM, SERUM 145 MMOL/L (135-148)
[2016-04-30 16:36] LABS: GLUCOSE, SERUM 134 MG/DL (60-99)
[2016-05-01 11:04] LABS: BASOPHILS 0.2 %; BASOPHILS ABSOLUTE 0.01 10/3/uL (0.0-0.16); EOSINOPHILS 1.7 %; EOSINOPHILS ABSOLUTE 0.09 10/3/uL (0.0-0.53); HEMATOCRIT 25.7 % (40.0-51.0); HEMOGLOBIN 8.2 g/dL (13.6-17.8); IMMATURE GRANULOCYTES 2.2 %; IMMATURE GRANULOCYTES ABSOLUTE 0.12 10/3/uL (0.0-0.11); LYMPHOCYTES 23.9 %; MEAN CORPUS HGB CONC 31.9 g/dL (32.0-36.0); MEAN CORPUSCULAR HEMOGLOB 27.2 pg (26.0-34.0); MEAN CORPUSCULAR VOLUME 85.1 fL (80-100); MEAN PLATELET VOLUME 10.7 fL (9.2-13.0); MONOCYTES 4.8 %; MONOCYTES ABSOLUTE 0.26 10/3/uL (0.21-1.20); NEUTROPHILS 67.2 %; NEUTROPHILS ABSOLUTE 3.67 10/3/uL (2.02-8.40); PLATELET COUNT 137 10/3/uL (150-400); RBC DISTRIBUTION WIDTH 15.3 % (12.0-16.0); RED CELL COUNT 3.02 10/6/uL (4.7-6.1); WHITE BLOOD CELLS 5.5 10/3/uL (4.5-10.5)
[2016-05-01 11:06] LABS: MANUAL DIFF NO %
[2016-05-01 11:47] LABS: BUN (BLOOD UREA NITROGEN) 19 MG/DL (6-23); CALCIUM, SERUM 7.8 MG/DL (8.5-10.4); CHLORIDE, SERUM 113 MMOL/L (96-112); CO2 (CARBON DIOXIDE) 23 MMOL/L (24-34); CREATININE 2.41 MG/DL (0.70-1.30); GFR AFRICAN AMERICAN 30 ML/MIN (>=60); GFR NON AFRICAN AMERICAN 25 ML/MIN (>=60); GLUCOSE, SERUM 121 MG/DL (60-99); PHOSPHORUS, SERUM 2.1 MG/DL (2.5-4.5); POTASSIUM, SERUM 3.3 MMOL/L (3.5-5.3); SODIUM, SERUM 147 MMOL/L (135-148)
[2016-05-02 12:01] LABS: BASOPHILS 0.2 %; BASOPHILS ABSOLUTE 0.01 10/3/uL (0.0-0.16); EOSINOPHILS 1.8 %; EOSINOPHILS ABSOLUTE 0.11 10/3/uL (0.0-0.53); IMMATURE GRANULOCYTES 1.8 %; IMMATURE GRANULOCYTES ABSOLUTE 0.11 10/3/uL (0.0-0.11); LYMPHOCYTES ABSOLUTE 1.35 10/3/uL (0.67-4.30); MANUAL DIFF NO %; MEAN CORPUSCULAR VOLUME 84.5 fL (80-100); MONOCYTES 5.5 %; MONOCYTES ABSOLUTE 0.34 10/3/uL (0.21-1.20); NEUTROPHILS 68.7 %; NEUTROPHILS ABSOLUTE 4.23 10/3/uL (2.02-8.40); PLATELET COUNT 153 10/3/uL (150-400); RBC DISTRIBUTION WIDTH 15.3 % (12.0-16.0); RED CELL COUNT 2.96 10/6/uL (4.7-6.1); WHITE BLOOD CELLS 6.2 10/3/uL (4.5-10.5)
[2016-05-02 12:10] LABS: INTERNATIONAL NORMAL RATI 1.1 UNITS (-); PROTIME (NOT ORD) 14.3 SEC (12.0-14.5)
[2016-05-02 13:44] LABS: CALCIUM, SERUM 7.9 MG/DL (8.5-10.4); CHLORIDE, SERUM 111 MMOL/L (96-112); CO2 (CARBON DIOXIDE) 24 MMOL/L (24-34); CREATININE 2.41 MG/DL (0.70-1.30); GFR AFRICAN AMERICAN 30 ML/MIN (>=60); GFR NON AFRICAN AMERICAN 25 ML/MIN (>=60); GLUCOSE, SERUM 97 MG/DL (60-99); SODIUM, SERUM 144 MMOL/L (135-148)
[2016-05-02 13:45] LABS: BUN (BLOOD UREA NITROGEN) 26 MG/DL (6-23); POTASSIUM, SERUM 4.1 MMOL/L (3.5-5.3)
[2016-05-03 06:36] LABS: BASOPHILS 0.3 %; BASOPHILS ABSOLUTE 0.02 10/3/uL (0.0-0.16); EOSINOPHILS 1.2 %; EOSINOPHILS ABSOLUTE 0.09 10/3/uL (0.0-0.53); HEMATOCRIT 22.9 % (40.0-51.0); HEMOGLOBIN 7.1 g/dL (13.6-17.8); IMMATURE GRANULOCYTES ABSOLUTE 0.15 10/3/uL (0.0-0.11); LYMPHOCYTES 10.3 %; LYMPHOCYTES ABSOLUTE 0.79 10/3/uL (0.67-4.30); MEAN CORPUSCULAR HEMOGLOB 25.9 pg (26.0-34.0); MEAN CORPUSCULAR VOLUME 83.6 fL (80-100); MEAN PLATELET VOLUME 11.1 fL (9.2-13.0); MONOCYTES 5.1 %; MONOCYTES ABSOLUTE 0.39 10/3/uL (0.21-1.20); NEUTROPHILS 81.1 %; NEUTROPHILS ABSOLUTE 6.24 10/3/uL (2.02-8.40); PLATELET COUNT 170 10/3/uL (150-400); RBC DISTRIBUTION WIDTH 15.5 % (12.0-16.0); RED CELL COUNT 2.74 10/6/uL (4.7-6.1); WHITE BLOOD CELLS 7.7 10/3/uL (4.5-10.5)
[2016-05-03 06:37] LABS: MANUAL DIFF NO %
[2016-05-03 06:53] LABS: ALBUMIN 1.9 G/DL (3.5-5.0); CHLORIDE, SERUM 110 MMOL/L (96-112); CO2 (CARBON DIOXIDE) 23 MMOL/L (24-34); CREATININE 2.38 MG/DL (0.70-1.30); GFR AFRICAN AMERICAN 30 ML/MIN (>=60); GFR NON AFRICAN AMERICAN 26 ML/MIN (>=60); GLUCOSE, SERUM 110 MG/DL (60-99); POTASSIUM, SERUM 4.2 MMOL/L (3.5-5.3); SODIUM, SERUM 143 MMOL/L (135-148)
[2016-05-03 06:54] LABS: BUN (BLOOD UREA NITROGEN) 33 MG/DL (6-23); PHOSPHORUS, SERUM 3.2 MG/DL (2.5-4.5)
[2016-05-03 11:08] LABS: BUN (BLOOD UREA NITROGEN) 33 MG/DL (6-23); CALCIUM, SERUM 7.9 MG/DL (8.5-10.4); CHLORIDE, SERUM 111 MMOL/L (96-112); CO2 (CARBON DIOXIDE) 24 MMOL/L (24-34); CREATININE 2.27 MG/DL (0.70-1.30); GFR AFRICAN AMERICAN 32 ML/MIN (>=60); GFR NON AFRICAN AMERICAN 27 ML/MIN (>=60); GLUCOSE, SERUM 97 MG/DL (60-99); POTASSIUM, SERUM 4.5 MMOL/L (3.5-5.3); SODIUM, SERUM 145 MMOL/L (135-148)
[2016-05-03 12:55] LABS: HEMATOCRIT 23.5 % (40.0-51.0); HEMOGLOBIN 7.4 g/dL (13.6-17.8)
[2016-05-03 18:53] LABS: HEMOGLOBIN 6.8 g/dL (13.6-17.8)
[2016-05-04 06:28] LABS: BASOPHILS 0.3 %; BASOPHILS ABSOLUTE 0.02 10/3/uL (0.0-0.16); EOSINOPHILS 1.4 %; HEMOGLOBIN 7.4 g/dL (13.6-17.8); IMMATURE GRANULOCYTES ABSOLUTE 0.14 10/3/uL (0.0-0.11); LYMPHOCYTES 17.1 %; LYMPHOCYTES ABSOLUTE 1.18 10/3/uL (0.67-4.30); MEAN CORPUS HGB CONC 31.8 g/dL (32.0-36.0); MEAN CORPUSCULAR HEMOGLOB 27.1 pg (26.0-34.0); MEAN CORPUSCULAR VOLUME 85.3 fL (80-100); MONOCYTES 6.9 %; MONOCYTES ABSOLUTE 0.48 10/3/uL (0.21-1.20); NEUTROPHILS 72.3 %; NEUTROPHILS ABSOLUTE 4.99 10/3/uL (2.02-8.40); PLATELET COUNT 156 10/3/uL (150-400); RBC DISTRIBUTION WIDTH 15.6 % (12.0-16.0); RED CELL COUNT 2.73 10/6/uL (4.7-6.1); WHITE BLOOD CELLS 6.9 10/3/uL (4.5-10.5)
[2016-05-04 06:31] LABS: ALBUMIN 1.8 G/DL (3.5-5.0); BUN (BLOOD UREA NITROGEN) 32 MG/DL (6-23); CALCIUM, SERUM 8.1 MG/DL (8.5-10.4); CHLORIDE, SERUM 113 MMOL/L (96-112); CO2 (CARBON DIOXIDE) 24 MMOL/L (24-34); CREATININE 2.39 MG/DL (0.70-1.30); GFR AFRICAN AMERICAN 30 ML/MIN (>=60); GFR NON AFRICAN AMERICAN 26 ML/MIN (>=60); GLUCOSE, SERUM 103 MG/DL (60-99); PHOSPHORUS, SERUM 2.4 MG/DL (2.5-4.5); POTASSIUM, SERUM 4.1 MMOL/L (3.5-5.3); SODIUM, SERUM 147 MMOL/L (135-148)
[2016-05-04 06:32] LABS: HEMATOCRIT 23.3 % (40.0-51.0); MANUAL DIFF NO %
[2016-05-05 06:16] LABS: BASOPHILS 0.2 %; BASOPHILS ABSOLUTE 0.01 10/3/uL (0.0-0.16); EOSINOPHILS 0.8 %; EOSINOPHILS ABSOLUTE 0.05 10/3/uL (0.0-0.53); IMMATURE GRANULOCYTES 1.4 %; IMMATURE GRANULOCYTES ABSOLUTE 0.09 10/3/uL (0.0-0.11); LYMPHOCYTES 16.7 %; LYMPHOCYTES ABSOLUTE 1.04 10/3/uL (0.67-4.30); MEAN CORPUS HGB CONC 31.6 g/dL (32.0-36.0); MEAN CORPUSCULAR HEMOGLOB 26.9 pg (26.0-34.0); MEAN CORPUSCULAR VOLUME 85.3 fL (80-100); MEAN PLATELET VOLUME 10.4 fL (9.2-13.0); MONOCYTES 6.3 %; MONOCYTES ABSOLUTE 0.39 10/3/uL (0.21-1.20); NEUTROPHILS 74.6 %; NEUTROPHILS ABSOLUTE 4.66 10/3/uL (2.02-8.40); PLATELET COUNT 164 10/3/uL (150-400); RBC DISTRIBUTION WIDTH 15.8 % (12.0-16.0); RED CELL COUNT 2.45 10/6/uL (4.7-6.1); WHITE BLOOD CELLS 6.2 10/3/uL (4.5-10.5)
[2016-05-05 06:28] LABS: HEMATOCRIT 20.9 % (40.0-51.0); HEMOGLOBIN 6.6 g/dL (13.6-17.8)
[2016-05-05 06:29] LABS: MANUAL DIFF NO %
[2016-05-05 06:40] LABS: BUN (BLOOD UREA NITROGEN) 33 MG/DL (6-23); CALCIUM, SERUM 8.5 MG/DL (8.5-10.4); CHLORIDE, SERUM 114 MMOL/L (96-112); CO2 (CARBON DIOXIDE) 22 MMOL/L (24-34); CREATININE 2.33 MG/DL (0.70-1.30); GFR AFRICAN AMERICAN 31 ML/MIN (>=60); GFR NON AFRICAN AMERICAN 27 ML/MIN (>=60); GLUCOSE, SERUM 108 MG/DL (60-99); PHOSPHORUS, SERUM 2.1 MG/DL (2.5-4.5); POTASSIUM, SERUM 3.9 MMOL/L (3.5-5.3); SODIUM, SERUM 147 MMOL/L (135-148)
[2016-05-05 12:46] LABS: FREE T4 1.13 NG/DL (0.76-1.46)
[2016-05-05 12:47] LABS: ULTRASENSITIVE TSH 2.94 MCIU/ML (0.358-3.740)
[2016-05-06 07:08] LABS: BASOPHILS 0.3 %; BASOPHILS ABSOLUTE 0.02 10/3/uL (0.0-0.16); EOSINOPHILS 0.8 %; EOSINOPHILS ABSOLUTE 0.05 10/3/uL (0.0-0.53); HEMATOCRIT 22.3 % (40.0-51.0); HEMOGLOBIN 7.1 g/dL (13.6-17.8); IMMATURE GRANULOCYTES 1.3 %; IMMATURE GRANULOCYTES ABSOLUTE 0.08 10/3/uL (0.0-0.11); LYMPHOCYTES 15.7 %; LYMPHOCYTES ABSOLUTE 0.97 10/3/uL (0.67-4.30); MEAN CORPUS HGB CONC 31.8 g/dL (32.0-36.0); MEAN CORPUSCULAR HEMOGLOB 27.1 pg (26.0-34.0); MEAN CORPUSCULAR VOLUME 85.1 fL (80-100); MEAN PLATELET VOLUME 10.8 fL (9.2-13.0); MONOCYTES 6.1 %; MONOCYTES ABSOLUTE 0.38 10/3/uL (0.21-1.20); NEUTROPHILS 75.8 %; NEUTROPHILS ABSOLUTE 4.68 10/3/uL (2.02-8.40); PLATELET COUNT 186 10/3/uL (150-400); RBC DISTRIBUTION WIDTH 15.7 % (12.0-16.0); RED CELL COUNT 2.62 10/6/uL (4.7-6.1); WHITE BLOOD CELLS 6.2 10/3/uL (4.5-10.5)
[2016-05-06 07:18] LABS: ALBUMIN 1.9 G/DL (3.5-5.0); BUN (BLOOD UREA NITROGEN) 33 MG/DL (6-23); CALCIUM, SERUM 8.6 MG/DL (8.5-10.4); CHLORIDE, SERUM 115 MMOL/L (96-112); CO2 (CARBON DIOXIDE) 24 MMOL/L (24-34); CREATININE 2.27 MG/DL (0.70-1.30); GFR AFRICAN AMERICAN 32 ML/MIN (>=60); GFR NON AFRICAN AMERICAN 27 ML/MIN (>=60); GLUCOSE, SERUM 101 MG/DL (60-99); PHOSPHORUS, SERUM 2.7 MG/DL (2.5-4.5); POTASSIUM, SERUM 3.8 MMOL/L (3.5-5.3); SODIUM, SERUM 147 MMOL/L (135-148)
[2016-05-06 07:19] LABS: MANUAL DIFF NO %
[2016-05-06 12:49] LABS: HDL CHOLESTEROL 36 MG/DL (> 39)
[2016-05-06 12:50] LABS: CHOL/HDL RATIO(NOT ORDER) 3.4 (0-5); CHOLESTEROL 123 MG/DL (< 200); LDL CHOLESTEROL 66 MG/DL (< 130); NON-HDL CHOLESTEROL 87 MG/DL (< 160); TRIGLYCERIDE 106 MG/DL (< 150)
[2016-05-07 07:16] LABS: BASOPHILS 0.5 %; BASOPHILS ABSOLUTE 0.03 10/3/uL (0.0-0.16); EOSINOPHILS 1.3 %; EOSINOPHILS ABSOLUTE 0.08 10/3/uL (0.0-0.53); IMMATURE GRANULOCYTES 1.1 %; IMMATURE GRANULOCYTES ABSOLUTE 0.07 10/3/uL (0.0-0.11); LYMPHOCYTES 17.4 %; LYMPHOCYTES ABSOLUTE 1.09 10/3/uL (0.67-4.30); MEAN CORPUSCULAR HEMOGLOB 28.1 pg (26.0-34.0); MEAN PLATELET VOLUME 10.4 fL (9.2-13.0); MONOCYTES 5.9 %; MONOCYTES ABSOLUTE 0.37 10/3/uL (0.21-1.20); NEUTROPHILS 73.8 %; NEUTROPHILS ABSOLUTE 4.61 10/3/uL (2.02-8.40); PLATELET COUNT 185 10/3/uL (150-400); RBC DISTRIBUTION WIDTH 15.9 % (12.0-16.0); RED CELL COUNT 2.35 10/6/uL (4.7-6.1); WHITE BLOOD CELLS 6.3 10/3/uL (4.5-10.5)
[2016-05-07 07:18] LABS: HEMATOCRIT 20.6 % (40.0-51.0); HEMOGLOBIN 6.6 g/dL (13.6-17.8); MEAN CORPUSCULAR VOLUME 87.7 fL (80-100)
[2016-05-07 07:19] LABS: MANUAL DIFF NO %
[2016-05-07 07:31] LABS: A/G RATIO 0.6 (0.7-1.9); BUN (BLOOD UREA NITROGEN) 36 MG/DL (6-23); CALCIUM, SERUM 8.2 MG/DL (8.5-10.4); CHLORIDE, SERUM 116 MMOL/L (96-112); CO2 (CARBON DIOXIDE) 24 MMOL/L (24-34); GFR AFRICAN AMERICAN 31 ML/MIN (>=60); GFR NON AFRICAN AMERICAN 27 ML/MIN (>=60); GLOBULIN 3.1 G/DL (2.5-4.1); GLUCOSE, SERUM 96 MG/DL (60-99); POTASSIUM, SERUM 3.7 MMOL/L (3.5-5.3); SGOT(AST) 20 U/L (5-40); SGPT(ALT) 9 U/L (5-65); SODIUM, SERUM 149 MMOL/L (135-148); TOTAL PROTEIN 5.1 G/DL (6.0-8.5)
[2016-05-07 07:32] LABS: ALKALINE PHOSPHATASE 93 U/L (45-117); TOTAL BILIRUBIN 0.3 MG/DL (0-1.2)
[2016-05-08 06:40] LABS: BASOPHILS 0.3 %; BASOPHILS ABSOLUTE 0.02 10/3/uL (0.0-0.16); EOSINOPHILS 3.1 %; EOSINOPHILS ABSOLUTE 0.23 10/3/uL (0.0-0.53); IMMATURE GRANULOCYTES 1.1 %; IMMATURE GRANULOCYTES ABSOLUTE 0.08 10/3/uL (0.0-0.11); LYMPHOCYTES 19.3 %; LYMPHOCYTES ABSOLUTE 1.44 10/3/uL (0.67-4.30); MEAN CORPUS HGB CONC 33.3 g/dL (32.0-36.0); MEAN CORPUSCULAR HEMOGLOB 28.2 pg (26.0-34.0); MEAN PLATELET VOLUME 10.9 fL (9.2-13.0); MONOCYTES 6.6 %; MONOCYTES ABSOLUTE 0.49 10/3/uL (0.21-1.20); NEUTROPHILS 69.6 %; NEUTROPHILS ABSOLUTE 5.19 10/3/uL (2.02-8.40); PLATELET COUNT 193 10/3/uL (150-400); RBC DISTRIBUTION WIDTH 16.1 % (12.0-16.0); WHITE BLOOD CELLS 7.5 10/3/uL (4.5-10.5)
[2016-05-08 06:47] LABS: HEMATOCRIT 26.1 % (40.0-51.0); HEMOGLOBIN 8.7 g/dL (13.6-17.8); MANUAL DIFF NO %; MEAN CORPUSCULAR VOLUME 84.5 fL (80-100); RED CELL COUNT 3.09 10/6/uL (4.7-6.1)
[2016-05-08 06:52] LABS: A/G RATIO 0.6 (0.7-1.9); ALKALINE PHOSPHATASE 103 U/L (45-117); BUN (BLOOD UREA NITROGEN) 33 MG/DL (6-23); CALCIUM, SERUM 8.2 MG/DL (8.5-10.4); CHLORIDE, SERUM 115 MMOL/L (96-112); CO2 (CARBON DIOXIDE) 24 MMOL/L (24-34); CREATININE 2.26 MG/DL (0.70-1.30); GFR AFRICAN AMERICAN 32 ML/MIN (>=60); GFR NON AFRICAN AMERICAN 28 ML/MIN (>=60); GLOBULIN 3.2 G/DL (2.5-4.1); GLUCOSE, SERUM 100 MG/DL (60-99); SGPT(ALT) 14 U/L (5-65); SODIUM, SERUM 147 MMOL/L (135-148); TOTAL BILIRUBIN 0.4 MG/DL (0-1.2); TOTAL PROTEIN 5.2 G/DL (6.0-8.5)
[2016-05-08 07:02] LABS: POTASSIUM, SERUM 3.9 MMOL/L (3.5-5.3); SGOT(AST) 20 U/L (5-40)
[2016-05-09 06:27] LABS: BASOPHILS 0.4 %; BASOPHILS ABSOLUTE 0.03 10/3/uL (0.0-0.16); EOSINOPHILS 2.5 %; EOSINOPHILS ABSOLUTE 0.18 10/3/uL (0.0-0.53); HEMOGLOBIN 7.4 g/dL (13.6-17.8); IMMATURE GRANULOCYTES 1.4 %; LYMPHOCYTES 19.8 %; LYMPHOCYTES ABSOLUTE 1.44 10/3/uL (0.67-4.30); MEAN CORPUS HGB CONC 32.5 g/dL (32.0-36.0); MEAN CORPUSCULAR HEMOGLOB 28.4 pg (26.0-34.0); MEAN PLATELET VOLUME 10.5 fL (9.2-13.0); MONOCYTES 5.9 %; MONOCYTES ABSOLUTE 0.43 10/3/uL (0.21-1.20); NEUTROPHILS ABSOLUTE 5.09 10/3/uL (2.02-8.40); PLATELET COUNT 192 10/3/uL (150-400); RED CELL COUNT 2.61 10/6/uL (4.7-6.1); WHITE BLOOD CELLS 7.3 10/3/uL (4.5-10.5)
[2016-05-09 06:31] LABS: HEMATOCRIT 22.8 % (40.0-51.0); MANUAL DIFF NO %; MEAN CORPUSCULAR VOLUME 87.4 fL (80-100)
[2016-05-09 06:42] LABS: A/G RATIO 0.7 (0.7-1.9); ALBUMIN 1.9 G/DL (3.5-5.0); ALKALINE PHOSPHATASE 96 U/L (45-117); CHLORIDE, SERUM 112 MMOL/L (96-112); CO2 (CARBON DIOXIDE) 25 MMOL/L (24-34); CREATININE 2.12 MG/DL (0.70-1.30); GFR AFRICAN AMERICAN 34 ML/MIN (>=60); GFR NON AFRICAN AMERICAN 30 ML/MIN (>=60); GLOBULIN 2.7 G/DL (2.5-4.1); GLUCOSE, SERUM 100 MG/DL (60-99); POTASSIUM, SERUM 3.7 MMOL/L (3.5-5.3); SGOT(AST) 8 U/L (5-40); SGPT(ALT) 8 U/L (5-65); SODIUM, SERUM 147 MMOL/L (135-148); TOTAL BILIRUBIN 0.4 MG/DL (0-1.2); TOTAL PROTEIN 4.6 G/DL (6.0-8.5)
[2016-05-09 06:44] LABS: BUN (BLOOD UREA NITROGEN) 37 MG/DL (6-23); CALCIUM, SERUM 7.8 MG/DL (8.5-10.4)
[2016-05-26] MEDS ORDERED: METHOC500B PO (12:54)
[2016-05-26] MEDS ORDERED: LIPITOR80 MG PO (12:56)
[2016-05-26] MEDS ORDERED: NORV10 PO (12:57)
[2016-05-26] MEDS ORDERED: SUCR PO (12:58)
[2016-05-26] MEDS ORDERED: FERROUS SULF325 M1 PO (12:59)
== END 2016-05-09 19:56 | DRG 356 ==
LOC: ER 20:23 → 2SO 22:34
PROVIDERS: Emergency Medicine; Hospitalist; Internal Medicine; Internal Medicine Gastroenterology; Nurse Practitioner; Nurse Practitioner Family; Specialist
PROC: 04713DZ Dilation of Celiac Artery with Intraluminal Device, Percutaneous Approach (ICD-10-PCS; 2016-04-17 07:45)
PROC: 0DB98ZX Excision of Duodenum, Via Natural or Artificial Opening Endoscopic, Diagnostic (ICD-10-PCS; principal; 2016-04-21 09:27)
PROC: 30233N1 Transfusion of Nonautologous Red Blood Cells into Peripheral Vein, Percutaneous Approach (ICD-10-PCS; 2016-04-22)
PROC: B41D1ZZ Fluoroscopy of Aorta and Bilateral Lower Extremity Arteries using Low Osmolar Contrast (ICD-10-PCS; 2016-04-26)
PROC: B4141ZZ Fluoroscopy of Superior Mesenteric Artery using Low Osmolar Contrast (ICD-10-PCS; 2016-04-26)
PROC: B41B1ZZ Fluoroscopy of Other Intra-Abdominal Arteries using Low Osmolar Contrast (ICD-10-PCS; 2016-04-26)
PROC: B41D1ZZ Fluoroscopy of Aorta and Bilateral Lower Extremity Arteries using Low Osmolar Contrast (ICD-10-PCS; 2016-05-02)
PROC: B3141ZZ Fluoroscopy of Left Common Carotid Artery using Low Osmolar Contrast (ICD-10-PCS; 2016-05-02)
PROC: 047534Z Dilation of Superior Mesenteric Artery with Drug-eluting Intraluminal Device, Percutaneous Approach (ICD-10-PCS; 2016-05-02 15:45)
DX: K55.059 Acute (reversible) ischemia of intestine, part and extent unspecified (principal); I63.233 Cerebral infarction due to unspecified occlusion or stenosis of bilateral carotid arteries; N17.9 Acute kidney failure, unspecified; E87.2 Acidosis; E44.0 Moderate protein-calorie malnutrition; K31.1 Adult hypertrophic pyloric stenosis; I50.32 Chronic diastolic (congestive) heart failure; I13.0 Hypertensive heart and chronic kidney disease with heart failure and stage 1 through stage 4 chronic kidney disease, or unspecified chronic kidney disease; E87.1 Hypo-osmolality and hyponatremia; K22.10 Ulcer of esophagus without bleeding; K26.9 Duodenal ulcer, unspecified as acute or chronic, without hemorrhage or perforation; K55.1 Chronic vascular disorders of intestine; K44.9 Diaphragmatic hernia without obstruction or gangrene; E83.42 Hypomagnesemia; E87.6 Hypokalemia; K29.80 Duodenitis without bleeding; F41.9 Anxiety disorder, unspecified; I25.10 Atherosclerotic heart disease of native coronary artery without angina pectoris; N18.3 Chronic kidney disease, stage 3 (moderate); I73.9 Peripheral vascular disease, unspecified; K22.70 Barrett's esophagus without dysplasia; F10.21 Alcohol dependence, in remission; D35.00 Benign neoplasm of unspecified adrenal gland; K57.90 Diverticulosis of intestine, part unspecified, without perforation or abscess without bleeding; E78.00 Pure hypercholesterolemia, unspecified; G46.3 Brain stem stroke syndrome; E53.8 Deficiency of other specified B group vitamins; I70.8 Atherosclerosis of other arteries; D63.8 Anemia in other chronic diseases classified elsewhere; Z95.5 Presence of coronary angioplasty implant and graft; Z80.9 Family history of malignant neoplasm, unspecified; Z95.2 Presence of prosthetic heart valve; Z82.49 Family history of ischemic heart disease and other diseases of the circulatory system; Z86.73 Personal history of transient ischemic attack (TIA), and cerebral infarction without residual deficits; Z98.890 Other specified postprocedural states; Z85.528 Personal history of other malignant neoplasm of kidney; Z87.891 Personal history of nicotine dependence
CPT/HCPCS: 36215; 36222; 36245; 36415; 37236; 37237; 70450; 70480; 70551; 71010; 74000; 74176; 75710; 75726; 76937; 80048; 80053; 80061; 80069; 80076; 81001; 82140; 82150; 82306; 82330; 82533; 82607; 82746; 82962; 83036; 83605; 83690; 83735; 83880; 84100; 84145; 84439; 84443; 84484; 85014; 85018; 85025; 85045; 85610; 85730; 86850; 86900; 86901; 86920; 88112; 88305; 93005; 93880; 93975; 94640; 97110-GP; 97116-GP; 97161-GP; 97164-GP; 99285; A9270-GY; C1725; C1769; C1874; C1876; C1877; C1887; C1894; C8929; C9113; G8978-CK-GP; G8979-CH-GP; G8979-CJ-GP; J0330; J0360; J0690; J0834; J1940; J2250; J2370; J2405; J2550; J2765; J2930; J3010; J3411; P9016; Q9957; Q9967

== ENCOUNTER 2016-05-28 09:26 | Day surgery (SDC) | payer MEDICARE, BC ==
--- NOTE | ~2016-05-28 | EGD ---
EGD REPORT [facility] [address] [place] [address] NAME: MINGO BENTLEY : 42 STATUS : REG [facility]#: [id number] AGE: 75 ADM/REG DATE : 05/28/16 MR#: [id number] REPORT SERV DATE: 05/28/16 DICTATED BY: DATE: REPORT STATUS : Draft TRANSCRIBED BY: [facility] DATE: 05/28/16 Endoscopy Center Patient Name: Mingo Bentley Date of : 1940 Attending MD: BLAKE CONSTANTINO MD Procedure Date No Time: 05/28/2016 Procedure: Colonoscopy Indications: Melena Medicines: Monitored Anesthesia Care Complications: No immediate complications. Procedure: After I obtained informed consent, the scope was passed under direct vision. Throughout the procedure, the patient's blood pressure, pulse, and oxygen saturations were monitored continuously. The PCF [id number] was introduced through the anus and advanced to 15 cm into the ileum. The colonoscopy was performed without difficulty. The patient tolerated the procedure well. The quality of the bowel preparation was poor. Findings: The perianal and digital rectal examinations were normal. A moderate amount of liquid stool was found in the entire colon, interfering with visualization. There is no endoscopic evidence of bleeding, inflammation, mass, ulcerations or angioectasia in the distal Transverse Colon, in the hepatic flexure, in the ascending colon and in the cecum. The terminal ileum appeared normal. Impression: - Preparation of the colon was poor. - Stool in the entire examined colon. - The examined portion of the ileum was normal. Recommendation: - Patient has a contact number available for emergencies. The signs and symptoms of potential delayed complications were discussed with the patient. Return to normal activities tomorrow. Written discharge instructions were provided to the patient. - Regular diet. - Discharge patient to home. - Continue present medications. - Check hemoglobin weekly. - To visualize the small bowel, perform video capsule endoscopy at appointment to be scheduled. Procedure Code(s): --- Professional --- EGD REPORT [facility] [address] [address] NAME: MINGO BENTLEY : 42 STATUS : REG [facility]#: [id number] AGE: 75 ADM/REG DATE : 05/28/16 MR#: [id number] REPORT SERV DATE: 05/28/16 DICTATED BY: DATE: REPORT STATUS : Draft TRANSCRIBED BY: [employer] DATE: 05/28/16 [id number], Colonoscopy, flexible, proximal to splenic flexure; diagnostic, with or without collection of specimen(s) by brushing or washing, with or without colon decompression (separate procedure) Diagnosis Code(s): --- Professional --- K92.1, Melena CPT copyright 2013 [employer]. All rights reserved. The codes documented in this report are preliminary and upon clinical coder review may be revised to meet current compliance requirements. BLAKE CONSTANTINO MD 05/28/2016 2:05 PM This report has been signed electronically. Number of Addenda: 0 Note Initiated On: 05/28/2016 1:21 PM Scope Withdrawal Time 0 hours 6 minutes 36 seconds [id number] [id number]
--- NOTE | ~2016-05-28 | EGD ---
EGD REPORT [facility] [address] [place] [address] NAME: MINGO BENTLEY : 42 STATUS : REG [facility]#: [id number] AGE: 75 ADM/REG DATE : 05/28/16 MR#: [id number] REPORT SERV DATE: 05/28/16 DICTATED BY: DATE: REPORT STATUS : Draft TRANSCRIBED BY: [facility] DATE: 05/28/16 Endoscopy Center Patient Name: Mingo Bentley Date of : 1940 Attending MD: BLAKE CONSTANTINO MD Procedure Date No Time: 05/28/2016 Procedure: Small bowel enteroscopy Indications: Melena Medicines: Monitored Anesthesia Care Complications: No immediate complications. Procedure: After obtaining informed consent, the endoscope was passed under direct vision. Throughout the procedure, the patient's blood pressure, pulse, and oxygen saturations were monitored continuously. The SIF [id number] was introduced through the mouth and advanced to the small bowel distal to the Ligament of Treitz. The small bowel enteroscopy was accomplished without difficulty. The patient tolerated the procedure well. Findings: The esophagus is well healed. The patient has known Jamil's esophagus. Surveillance was not undertaken today during enteroscopy. No bleeding or source of bleeding was found in the stomachor duodenum. A small submucosal nodule was noted in the antrum. There was no evidence of significant pathology in the proximal jejunum. There were no angioectasias, ulceration. Impression: - The examined portion of the jejunum was normal. Recommendation: - Discharge patient to home. - Regular diet. - Continue present medications. - Check hemoglobin weekly. Procedure Code(s): --- Professional --- 76001, Small intestinal endoscopy, enteroscopy beyond second portion of duodenum, not including ileum; diagnostic, with or without collection of specimen(s) by brushing or washing (separate procedure) Diagnosis Code(s): --- Professional --- K92.1, Melena CPT copyright 2013 [employer]. All rights reserved. EGD REPORT [facility] [address] [place]. [address] NAME: MINGO BENTLEY : 42 STATUS : REG [facility] PAT#: [id number] AGE: 75 ADM/REG DATE : 05/28/16 MR#: [id number] REPORT SERV DATE: 05/28/16 DICTATED BY: DATE: REPORT STATUS : Draft TRANSCRIBED BY: [employer] DATE: 05/28/16 The codes documented in this report are preliminary and upon parking patroller review may be revised to meet current compliance requirements. BLAKE CONSTANTINO MD 05/28/2016 2:01 PM This report has been signed electronically. Number of Addenda: 0 Note Initiated On: 05/28/2016 1:23 PM Scope Withdrawal Time 0 hours 0 minutes 0 seconds [address] [place] [address]
[~2016-05-28 09:26] MED LIST changes: +MCZ25 PO; +METHOC500B PO; +NORV10 PO; +PR12.5 PO; +SUCR PO; +X5 PO; +ZESTORETIC PO
== END 2016-05-28 23:59 | disposition home or self-care (01) ==
LOC: DMU 09:26
PROVIDERS: Internal Medicine Gastroenterology
PROC: 0DJ08ZZ Inspection of Upper Intestinal Tract, Via Natural or Artificial Opening Endoscopic (ICD-10-PCS; principal; 2016-05-28 13:00)
PROC: 0DJD8ZZ Inspection of Lower Intestinal Tract, Via Natural or Artificial Opening Endoscopic (ICD-10-PCS; 2016-05-28 13:00)
DX: K92.1 Melena (principal); I10 Essential (primary) hypertension; E78.00 Pure hypercholesterolemia, unspecified; I73.9 Peripheral vascular disease, unspecified; I25.2 Old myocardial infarction; J44.9 Chronic obstructive pulmonary disease, unspecified; K44.9 Diaphragmatic hernia without obstruction or gangrene; F41.9 Anxiety disorder, unspecified; D64.9 Anemia, unspecified; Z86.73 Personal history of transient ischemic attack (TIA), and cerebral infarction without residual deficits; Z88.2 Allergy status to sulfonamides; Z79.899 Other long term (current) drug therapy; Z79.82 Long term (current) use of aspirin; Z90.89 Acquired absence of other organs; Z90.49 Acquired absence of other specified parts of digestive tract; Z98.890 Other specified postprocedural states; Z90.5 Acquired absence of kidney